=== PATIENT | female | born 1955 | race Caucasian/White ===

== ENCOUNTER 2020-11-26 12:56 | Outpatient (REF) | payer OTHER, SELFPAY | END 2020-11-26 12:57 | disposition home or self-care (01) | LOC: HO.BBR 12:56 | PROVIDERS: PCP Internal Medicine; Visit Provider Family Medicine | DX: Z13.89 Encounter for screening for other disorder (principal) ==

== ENCOUNTER 2020-11-26 13:51 | Outpatient (REF) | payer SELFPAY ==
[2020-11-26 14:33] LABS: Cholesterol 178 mg/dL
== END 2020-11-26 13:52 | disposition home or self-care (01) ==
LOC: HO.LNC 13:51
PROVIDERS: Visit Provider Pathology Anatomic Pathology & Clinical Pathology
DX: Z13.89 Encounter for screening for other disorder (principal)
CPT/HCPCS: 36415; 82465

== ENCOUNTER 2021-03-26 12:59 | Outpatient (REF) | payer MEDICARE, SELFPAY | END 2021-03-26 13:00 | disposition home or self-care (01) | LOC: HO.BBR 12:59 | PROVIDERS: Visit Provider Family Medicine | DX: Z13.89 Encounter for screening for other disorder (principal) ==

== ENCOUNTER 2021-08-21 14:03 | Outpatient (REF) | payer MEDICARE, SELFPAY ==
[2021-08-21 15:23] LABS: Ferritin 58 ng/mL (10-250)
== END 2021-08-21 14:04 | disposition home or self-care (01) ==
LOC: HO.BBR 14:03
PROVIDERS: PCP Internal Medicine; Visit Provider Family Medicine
DX: E83.110 Hereditary hemochromatosis (principal)
CPT/HCPCS: 36415; 82728

== ENCOUNTER 2022-03-17 13:29 | Outpatient (REF) | payer MEDICARE, SELFPAY | END 2022-03-17 13:30 | disposition home or self-care (01) | LOC: HO.BBR 13:29 | PROVIDERS: Visit Provider Family Medicine | DX: Z13.89 Encounter for screening for other disorder (principal) ==

== ENCOUNTER 2022-08-26 13:02 | Outpatient (REF) | payer MEDICARE, SELFPAY ==
[2022-08-26 15:55] LABS: Ferritin 123 ng/mL (10-250)
== END 2022-08-26 13:03 | disposition home or self-care (01) ==
LOC: HO.BBR 13:02
PROVIDERS: Visit Provider Family Medicine
DX: E83.110 Hereditary hemochromatosis (principal)
CPT/HCPCS: 36415; 82728

== ENCOUNTER 2022-12-24 11:57 | Outpatient (REF) | payer MEDICARE, SELFPAY | END 2022-12-24 11:58 | disposition home or self-care (01) | LOC: HO.BBR 11:57 | PROVIDERS: Visit Provider Family Medicine | DX: Z13.89 Encounter for screening for other disorder (principal) ==

== ENCOUNTER 2023-06-01 12:36 | Outpatient (REF) | payer MEDICARE, SELFPAY | END 2023-06-01 12:37 | disposition home or self-care (01) | LOC: HO.BBR 12:36 | PROVIDERS: Visit Provider Family Medicine | DX: Z13.89 Encounter for screening for other disorder (principal) ==

== ENCOUNTER 2023-10-11 12:01 | Outpatient (REF) | payer MEDICARE, SELFPAY | END 2023-10-11 12:02 | disposition home or self-care (01) | LOC: HO.BBR 12:01 | PROVIDERS: Visit Provider Family Medicine | DX: Z13.89 Encounter for screening for other disorder (principal) ==

== ENCOUNTER 2024-02-16 12:12 | Outpatient (REF) | payer MEDICARE, SELFPAY | END 2024-02-16 12:13 | disposition home or self-care (01) | LOC: HO.BBR 12:12 | PROVIDERS: PCP Internal Medicine; Visit Provider Family Medicine | DX: Z13.89 Encounter for screening for other disorder (principal) ==

== ENCOUNTER 2024-07-07 12:49 | Outpatient (REF) | payer MEDICARE, SELFPAY | END 2024-07-07 12:50 | disposition home or self-care (01) | LOC: HO.BBR 12:49 | PROVIDERS: PCP Internal Medicine; Visit Provider Internal Medicine | DX: Z13.89 Encounter for screening for other disorder (principal) ==

== ENCOUNTER 2024-11-16 12:58 | Outpatient (REF) | payer MEDICARE, SELFPAY ==
--- OUTSIDE RECORDS SUMMARY | 2024-11-16 15:19 | XMS_ITS | Continuity of Care Document ---
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 Plan of Treatment Reminders Order Date Submit Date Provider Last Modified By Organization Details Last Modified Time Details Appointments Establish ed 15 2024 10:30A M SEVERO AVILA MD Not available Not available Not available Lab None recorded. Referral None recorded. Procedures None recorded. Surgeries None recorded. Imaging None recorded. Medication Orders EpiPen 2-Que 0.3 mg/0.3 mL injection , auto-inje ctor 2024 025 [facility][id number], [address] [facility] [place], [address], 11/10/2024 11:24:29 Patient TargetsNo targets recorded. Patient InstructionsNo instructions recorded. Reason for Referral None Reported. Problems Name Problem SNOMED Code Status Onset Date Resolution Date Notes Provider Name and Address Organization Details Recorded Time Gastroeso phageal reflux disease 242895145 Active 2014 GERD; Note: Date Diagnosed : 10/31/2014 10:39 AM (530.81) Not Available [facility] 4 02:56:52 Acute pharyngit is 726448292 Active 2015 Acute pharyngit is, unspecifi ed; Note: Date Diagnosed : 03/05/2016 5:04 PM (J02.9) Not Available [facility] 4 02:56:52 Allergic rhinitis 07919531 Active 2014 Allergic Rhinitis; Note: Date Diagnosed : 12/03/2014 11:53 AM (477.9) ; Start Date : 5 Allergi c rhinitis: Due to other allergen; Note: Date Diagnosed : 11/22/2014 12:01 PM (477.8) ; Start Date : 5 Allergi c Rhinitis; Note: Date Diagnosed : 10/31/2014 10:39 AM (477.9) ; Start Date : 5 Perenni al allergic rhinitis; Note: Date Diagnosed : 5 4:35 PM (J30.89) Not Available [facility] 4 02:56:53 Impacted cerumen in right ear [id number] 75705 Active 2018 Impacted cerumen, right ear; Note: Date Diagnosed : 03/07/2019 10:37 AM (H61.21) Not Available [facility] 4 02:56:53 Dysphonia 04757430 Active 2016 Hoarsenes s; Note: Date Diagnosed : 7 4:03 PM (R49.0) Not Available [facility] 4 02:56:52 Asthma 968091825 Active 2016 Other asthma; Note: Date Diagnosed : 04/22/2017 10:57 AM (J45.998) Not Available [facility] 4 02:56:51 Impacted cerumen in left ear 98674851310 53220 Active 2015 Impacted cerumen, left ear; Note: Date Diagnosed : 6 2:06 PM (H61.22) Not Available [facility] 4 02:56:54 Acute upper respirato ry infection 03345264 Active 2014 Upper Respirato ry Infection ; Note: Date Diagnosed : 10/31/2014 10:39 AM (465.9) Not Available [facility] 4 02:56:50 Abnormal auditory perceptio n 85974184 Active 2018 Other abnormal auditory perceptio ns, unspecifi ed ear; Note: Date Diagnosed : 03/07/2019 10:28 AM (H93.299) Not Available [facility] 4 02:56:52 Psoriasis 0490987 Active 2022 Psoriasis and similar disorders : Other psoriasis ; Location: bilateral [facility] Treatment : new problem (to examiner) : no additiona l workup planned N ote: Date Diagnosed : 4 3:44 PM (696.1) ; Start Date : 4 Psorias is, unspecifi ed; Note: Date Diagnosed : 07/27/2023 1:59 PM (L40.9) Not Available [facility] 4 02:56:53 Cough 54456527 Active 2022 Cough; Note: Date Diagnosed : 02/16/2023 3:31 PM (R05) Not Available [facility] 4 02:56:51 Infective otitis externa 89097225 Active 2013 Otitis externa; infective ; Location: left [facility] Treatment : new problem (to examiner) : no additiona l workup planned N ote: Date Diagnosed : 4 3:44 PM (380.10) Not Available [facility] 4 02:56:52 Impacted cerumen of bilateral ears 02823054461 72527 Active 2022 Impacted cerumen, bilateral ; Note: Date Diagnosed : 02/16/2023 3:31 PM (H61.23) Not Available [facility] 4 02:56:54 Recurrent acute sinusitis 099168144 Active 2015 Other acute recurrent sinusitis ; Note: Date Diagnosed : 03/05/2016 5:00 PM (J01.81) Not Available [facility] 4 02:56:53 Bilateral tinnitus 33989535403 02 Active 2019 Tinnitus, bilateral ; Note: Date Diagnosed : 11/29/2019 3:06 PM (H93.13) Not Available [facility] 4 02:56:51 Candidal otitis externa 72377585 Active 2023 SEVERO AVILA MD [address] [place] [address], [facility] edna, [place], [address] , [facility] - [facility] 4 14:20:35 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 Medical Equipment None Reported. Allergies Allergen ID Allergen Name Allergen Category Reaction Reaction Severity Criticality Documentation Date Start Date Code Code System Note Provider Name and Address Organization Details Recorded Time [id number] Substance with sulfonami de structure and antibacte rial mechanism of action (substanc e) medicatio n other Not available Not available 03/07/2024 65675 [id number] SNOMED React ion: unkno wn, unspe cifie d;; Not Available [facility] 4 00:37:31 Medications Name Sig Start Date Stop Date Status Note LastModified by Organization Details LastModified Time Prescript ion - Prior Authoriza tion Request active Script Copy/Erin or Auth^Scr ipt Copy/Erin or Auth_ [id number] Not Available Not Available Not Available [facility] Thyroid 60 mg tablet TAKE 1 TABLET BY MOUTH EVERY DAY active Not Available Not Available No t Available Augmentin 875 mg-125 mg tablet 07/13 completed Medicati on ID: [id number] D uration Value: 10 Brand Name: Augmenti n Send Method: E-Prescr ibed Sub s Allowed: subs OK Speci al Instruct ion: 1 PO BID for 10 days Med icationG enericNa me: Augmenti n Not Available Not Available Not Available prednison e 10 mg tablet PLEASE SEE ATTACHED FOR DETAILED DIRECTIO NS 07/13 completed Not Available Not Available Not Available azithromy aaliyah 250 mg tablet TAKE 2 TABLETS BY MOUTH TODAY, THEN TAKE 1 TABLET DAILY FOR 4 DAYS DIRECTED 07/13 completed Not Available Not Available Not Available Medrol (Que) 4 mg tablets in a dose pack 07/13 completed Medicati on ID: [id number] P rescribe d By Name: Sarthak Mercaod MD Brand Name: Medrol (Que) Se nd Method: E-Prescr ibed Sub s Allowed: subs OK Speci al Instruct ion: take as [facility] ed [facility] Medrol (Que) Not Available Not Available Not Available triamcino lone acetonide 0.1 % topical cream APPLY TWICE A DAY TO ACTIVE PSORIASI S FOR UP TO TWO WEEKS AT A TIME active Not Available Not Available No t Available amoxicill in 500 mg tablet TAKE 1 TABLET BY MOUTH 3 TIMES A DAY FOR 10 DAYS 11/10 completed Not Available Not Available Not Available nystatin- triamcino lone 100,000 unit/gram -0.1 % topical ointment 03/07 completed Medicati on ID: [id number] D uration Value: 7 Reason: () Brand Name: nystatin -triamci nolone S end Method: E-Prescr ibed Sub s Allowed: subs OK Speci al Instruct ion: APPLY TO AFFECTED AREA BY EXTERNAL ROUTE 2 TIMES A DAY FOR 7 DAYS Med icationG enericNa me: nystatin -triamci nolone Not Available Not Available Not Available cephalexi n 500 mg capsule 11/22 completed Medicati on ID: [id number] Dur ation Value: 7 Reason: () Brand Name: cephalex in Send Method: E-Prescr ibed Sub s Allowed: subs OK Speci al Instruct ion: take 1 capsule by mouth four times a day for 7 days Med icationG enericNa me: cephalex in Not Available Not Available Not Available triamcino lone acetonide 0.1 % topical ointment 02/16 completed Medicati on ID: [id number] D uration Value: 14 Brand Name: triamcin olone acetonid e Send Method: E-Prescr ibed Sub s Allowed: subs OK Speci al Instruct ion: APPLY TOPICALL Y TO THE AFFECTED AREA 2 TIMES A DAY FOR 14 DAYS Med icationG enericNa me: triamcin olone acetonid e Not Available Not Available Not Available clotrimaz ole-betam ethasone 1 %-0.05 % topical cream PLEASE SEE ATTACHED FOR DETAILED DIRECTIO NS active Not Available Not Available No t Available Advair Diskus 250 mcg-50 mcg/dose powder for inhalatio n Inhale 1 puff twice a day 07/13 completed Medicati on ID: [id number] D uration Value: 90 Prescri bed By Name: Sarthak Mercado MD Brand Name: Adv Diskus S end Method: E-Prescr ibed Sub s Allowed: subs OK Medic ationGen ericName : Advair Diskus Not Available Not Available Not Available clotrimaz ole 1 % topical solution APPLY 4 DROPS TO THE AFFECTED EAR twice a day for two weeks 11/10 completed Not Available Not Available Not Available omeprazol e 20 mg capsule,d elayed release Take 1 capsule by mouth every morning one hour before meals 07/13 completed Medicati on ID: [id number] D uration Value: 30 Prescri bed By Name: Rk michel MD Brand Name: omeprazo le Send Method: E-Prescr ibed Sub s Allowed: subs OK Medic ationGen ericName : omeprazo le Not Available Not Available Not Available mont[address] 10 mg tablet 02/16 completed Medicati on ID: [id number] Dur ation Value: 30 Brand Name: monteluk ast Send Method: E-Prescr ibed Sub s Allowed: subs OK Speci al Instruct ion: TAKE 1 TABLET EVERY EVENING Medicati onGeneri cName: monteluk ast Not Available Not Available Not Available [facility] Thyroid 30 mg tablet 06/07 completed Medicati on ID: [id number] D uration Value: 90 Reason: () Brand Name: [place] Thyroid Send Method: E-Prescr ibed Sub s Allowed: subs OK Speci al Instruct ion: TAKE 1 TABLET BY MOUTH ONCE DAILY Me dication GenericN cathy: [place] Thyroid Not Available Not Available Not Available estradiol 0.01% (0.1 mg/gram) vaginal cream APPLY 1 APPLICAT ORFUL BY VAGINAL ROUTE 2 TIMES A WEEK FOR 90 DAYS 07/13 completed Not Available Not Available Not Available albuterol sulfate HFA 90 mcg/actua tion aerosol inhaler 2 PUFFS INHALATI ON 4 TIMES A DAY, NEEDED active Not Available Not Available No t Available TobraDex 0.3 %-0.1 % eye drops,perez pension 10/12 completed Medicati on ID: [id number] Pre scribed By Name: CELIA Gomez nd Name: TobraDex Send Method: E-Prescr ibed Sub s Allowed: subs OK Speci al Instruct ion: Instill 3 drops in the affect ear BID for 10 days Med icationG enericNa me: TobraDex Not Available Not Available Not Available rosuvasta tin 5 mg tablet TAKE 1 TABLET BY MOUTH EVERY DAY active Not Available Not Available No t Available nitrofura ntoin monohydra te/macroc rystals 100 mg capsule TAKE 1 CAPSULE BY MOUTH TWICE A DAY FOR 5 DAYS 11/10 completed Not Available Not Available Not Available Flovent HFA 110 mcg/actua tion aerosol inhaler 2 puff 02/16 completed Medicati on ID: [id number] P rescribe d By Name: Sarthak Mercado MD Brand Name: Flovent HFA Send Method: E-Prescr ibed Sub s Allowed: No subs Med icationG enericNa me: Flovent HFA Not Available Not Available Not Available Cortispor in 10/13 completed Medicati on ID: [id number] R radha: () Brand Name: cortispo rin Send Method: E-Prescr ibed Sub s Allowed: subs OK Medic ationGen ericName : cortispo rin Not Available Not Available Not Available Symbicort 160 mcg-4.5 mcg/actua tion HFA aerosol inhaler PLEASE SEE ATTACHED FOR DETAILED DIRECTIO NS active Not Available Not Available No t Available omeprazol e 20 mg tablet,de layed release 02/16 completed Medicati on ID: [id number] Pr escribed By Name: Sarthak Mercado MD Brand Name: omeprazo le Send Method: E-Prescr ibed Sub s Allowed: subs OK Speci al Instruct ion: Take 1 tablet by mouth twice day before a meal Med icationG enericNa me: omeprazo le Not Available Not Available Not Available EpiPen 2-Que 0.3 mg/0.3 mL injection , auto-inje ctor 1 pen injector intramus cularly 2024 active Not Available Not Available Not Avai lable Taclonex 0.005 %-0.064 % topical suspensio n 02/16 completed Medicati on ID: [id number] D uration Value: 30 Brand Name: Taclonex Send Method: E-Prescr ibed Sub s Allowed: subs OK Speci al Instruct ion: APPLY DAILY TO PSORIASI S TO SCALP AND BODY Med icationG enericNa me: Taclonex Not Available Not Available Not Available Vitals Date Recorded Body height Body mass index (BMI) Body weight Provider Name and Address Organization Details Last Updated DateTime 11/10/2024 157.48 cm 31.6 kg/m2 48443.48 g Fabiola Lam [place] - [facility] 11/10/2024 11:05:42 Social History None recorded. Functional Status None recorded. Mental Status None recorded. Family History Nothing Reported. Medical History No medical history recorded. Gynecological HistoryNo gynecological history recorded. Obstetrics History GPAL:G 0 P 0 0 0 0 Past Encounters Encounter ID Performer Location Encounter Start Date Encounter Closed Date Diagnosis/Indication Diagnosis SNOMED-CT Code Diagnosis ICD10 Code Diagnosis Note [id number] SEVERO AVILA MD [facility] [address] [address] 11/10/2024 10:51:49 11/10/2024 11:28:45 Allergic rhinitis 23088792 J30.89 Impacted c erumen of bilateral ears 0442539601 292103 H61.23 Completely squamous debris removed on the right, partially impacted cerumen removed on the left. I did recommend using the clotrimazo le prescribed at her last visit. I counseled her on dosing. She should continue to use the Lotrisone cream as needed for both EAC meatuses.F ollow-up 3 months. Health Concerns Section Related Observation LastModified by Organization Detai ls LastModified Time None Recorded Concern Status LastModified by Organization Details LastModified Time None Recorded Payers Encounter Date Sequence Insurance Name Policy Number Policy Renae Covered Member ID Renae Member ID Guarantor Name 11/10/2024 1 [place]: [employer] Sapna S Polep [id number] Sapna Polep 11/10/2024 2 [employer] (MEDICARE SUPPLEMENT) Sapna Tuttle Ana [id number] Sapna Perez Notes Date Note Type Note Provider Name and Address Organization Details Recorded Time 11/10/2024 text/html Previous audiogr am in 2019 excellent. Some blockage on the right. Did not use clotrimazole drops after her last visit. Does have some allergies with epipen. ESVERO AVILA MD [address] [place] [address], [place], [address], [place] - [facility] 11/10/2024 12:24:25 OBGyn Episode No OBEpisode recorded.
--- OUTSIDE RECORDS SUMMARY | 2024-11-16 15:19 | XMS_ITS | Data Portability ---
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 Plan of Treatment Reminders Order Date Submit Date Provider Last Modified By Organization Details Last Modified Time Details Appointments Establish ed 15 2024 10:30A M SEVERO AVILA MD Not available Not available Not available Lab None recorded. Referral None recorded. Procedures None recorded. Surgeries None recorded. Imaging None recorded. Medication Orders clotrimaz ole-betam ethasone 1 %-0.05 % topical cream 2023 024 [facility] #[id number], [address], [place], [address], 07/13/2024 14:21:48 clotrimaz ole 1 % topical solution 2023 025 [facility] #[id number], [address], [place], [address], 11/10/2024 11:06:03 EpiPen 2-Que 0.3 mg/0.3 mL injection , auto-inje ctor 2024 025 [facility] #[id number], [address], [place], [address], 11/10/2024 11:24:29 Patient TargetsNo targets recorded. Patient InstructionsNo instructions recorded. Reason for Referral None Reported. Results Created Date Observation Date Name Description Value Unit Range Abnormal Flag Note LastModifiedBy Organization Detail LastModifiedTime 06/14/20 24 11/29/2019 imagi ng/di agnos tic resul t No observ ation record ed. [email or web address] Not Available 05:33:21 06/14/20 24 03/07/2019 audio gram No observ ation record ed. [email or web address] Not Available 05:33:35 Result Notes None recorded. Problems Name Problem SNOMED Code Status Onset Date Resolution Date Notes Provider Name and Address Organization Details Recorded Time Gastroeso phageal reflux disease 731140351 Active 2014 GERD; Note: Date Diagnosed : 10/31/2014 10:39 AM (530.81) Not Available [facility] 4 02:56:52 Acute pharyngit is 844668995 Active 2015 Acute pharyngit is, unspecifi ed; Note: Date Diagnosed : 03/05/2016 5:04 PM (J02.9) Not Available [facility] 4 02:56:52 Allergic rhinitis 66062844 Active 2014 Allergic Rhinitis; Note: Date Diagnosed [...] : 5 4:35 PM (J30.89) Not Available [facility] 4 02:56:53 Impacted cerumen in right ear 87322974625 13300 Active 2018 Impacted cerumen, right ear; Note: Date Diagnosed : 03/07/2019 10:37 AM (H61.21) Not Available [facility] 4 02:56:53 Dysphonia 56388363 Active 2016 Hoarsenes s; Note: Date Diagnosed : 7 4:03 PM (R49.0) Not Available [facility] 4 02:56:52 Asthma 250586398 Active 2016 Other asthma; Note: Date Diagnosed : 04/22/2017 10:57 AM (J45.998) Not Available [facility] 4 02:56:51 Impacted cerumen in left ear 63428790908 83600 Active 2015 Impacted cerumen, left ear; Note: Date Diagnosed : 6 2:06 PM (H61.22) Not Available [facility] 4 02:56:54 Acute upper respirato ry infection 01477753 Active 2014 Upper Respirato ry Infection ; Note: Date Diagnosed : 10/31/2014 10:39 AM (465.9) Not Available [facility] 4 02:56:50 Abnormal auditory perceptio n 48954927 Active 2018 Other abnormal auditory perceptio ns, unspecifi ed ear; Note: Date Diagnosed : 03/07/2019 10:28 AM (H93.299) Not Available [facility] 4 02:56:52 Psoriasis 5715959 Active 2022 Psoriasis and similar disorders : Other psoriasis ; Location: bilateral [facility] Treatment : new problem (to examiner) : no additiona l workup planned N ote: Date Diagnosed : 4 3:44 PM (696.1) ; Start Date : 4 Psorias is, unspecifi ed; Note: Date Diagnosed : 07/27/2023 1:59 PM (L40.9) Not Available [facility] 4 02:56:53 Cough 38864770 Active 2022 Cough; Note: Date Diagnosed : 02/16/2023 3:31 PM (R05) Not Available [facility] 4 02:56:51 Infective otitis externa 12711876 Active 2013 Otitis externa; infective ; Location: left [facility] Treatment : new problem (to examiner) : no additiona l workup planned N ote: Date Diagnosed : 4 3:44 PM (380.10) Not Available [facility] 4 02:56:52 Impacted cerumen of bilateral ears 67498675974 34101 Active 2022 Impacted cerumen, bilateral ; Note: Date Diagnosed : 02/16/2023 3:31 PM (H61.23) Not Available [facility] 4 02:56:54 Recurrent acute sinusitis 318357478 Active 2015 Other acute recurrent sinusitis ; Note: Date Diagnosed : 03/05/2016 5:00 PM (J01.81) Not Available [facility] 4 02:56:53 Bilateral tinnitus 50431319206 02 Active 2019 Tinnitus, bilateral ; Note: Date Diagnosed : 11/29/2019 3:06 PM (H93.13) Not Available [facility] 4 02:56:51 Candidal otitis externa 27568203 Active 2023 SEVERO AVILA MD [address] [place] [address],[place] [address], [place], [address] , 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 - [facility] 4 14:20:35 Problem Notes None recorded. Procedures Surgical History None recorded. Imaging Results Imaging Date Name Status LastModified by [facility] Details LastModified Time 11/29/2019 imaging/diagno stic result completed Information not available 06/14/2024 05:33:21 03/07/2019 audiogram completed Information not available 06/14/2024 05:33:35 Procedure Notes None recorded. Medical Equipment None Reported. Allergies Allergen ID Allergen Name Allergen Category Reaction Reaction Severity Criticality Documentation Date Start Date Code Code System Note Provider Name and Address Organization Details Recorded Time 667896 Substance with sulfonami de structure and antibacte rial mechanism of action (substanc e) medicatio n other Not available Not available 03/07/2024 84448 8003 SNOMED React ion: unkno wn, unspe cifie d;; Not Available [facility] 4 00:37:31 Medications Name Sig Start Date Stop Date Status Note LastModified by Organization Details LastModified Time Prescript ion - Prior Authoriza tion Request active Script Copy/Erin or Auth^Scr ipt Copy/Erin or Auth_202 74427 Not Available Not Available Not Available Fountain Thyroid 60 mg tablet TAKE 1 TABLET BY MOUTH EVERY DAY active Not Available Not Available No t Available Augmentin 875 mg-125 mg tablet 07/13 completed Medicati on ID: [id number] D uration Value: 10 Brand Name: Kalie beauchamp Send Method: E-Prescr ibed Sub s Allowed: [...] dose pack 07/13 completed Medicati on ID: [id number] P rescribe d By Name: Sarthak Mercado MD Brand Name: Medrol (Que) Se nd Method: E-Prescr ibed Sub s Allowed: subs OK Speci al Instruct ion: take as instruct ed Medic ationGen ericName : Medrol (Que) Not Available Not [...] topical ointment 03/07 completed Medicati on ID: [id number] D uration Value: 7 Reason: () Brand [...] topical ointment 02/16 completed Medicati on ID: [id number] D uration Value: 14 Brand Name: triamcin [...] a day 07/13 completed Medicati on ID: [id number] D uration Value: 90 Prescri bed By Name: Sarthak Mercado MD Brand Name: Advair Diskus S end Method: E-Prescr ibed Sub [...] before meals 07/13 completed Medicati on ID: [id number] D uration Value: 30 Prescri bed By [...] ast Not Available Not Available Not Available Fountain Thyroid 30 mg tablet 06/07 completed Medicati on ID: [id number] D uration Value: 90 Reason: () Brand Name: Fountain Thyroid Send Method: E-Prescr ibed Sub s Allowed: subs OK Speci al Instruct ion: TAKE 1 TABLET BY MOUTH ONCE DAILY Me dication GenericN cathy: Fountain Thyroid Not Available Not Available Not Available [...] Available TobraDex 0.3 %-0.1 % eye drops,[facility] 10/12 completed Medicati on ID: [id number] Pre [...] 2 puff 02/16 completed Medicati on ID: [id number] P rescribe d By Name: Sarthak Mercado MD Brand Name: Flovent HFA Send Method: E-Prescr ibed Sub s Allowed: No subs Med icationG enericNa me: Flovent HFA Not Available Not Available Not Available Cortispor in 10/13 completed Medicati on ID: [id number] R radha: () Brand Name: cortispo rin Send Method: E-Prescr ibed Sub s Allowed: subs OK Medic ationGen ericName : cortispo rin Not Available Not Available Not Available Symbicort 160 mcg-4.5 mcg/actua tion HFA aerosol inhaler PLEASE SEE ATTACHED FOR DETAILED DIRECTIO NS active Not Available Not Available No t Available omeprazol e 20 mg tablet,de layed release 02/16 completed Medicati on ID: [id number] Pr escribed By Name: Sarthak Mercado MD [...] suspensio n 02/16 completed Medicati on ID: [id number] D uration Value: 30 Brand Name: Taclonex Send Method: E-Prescr ibed Sub s Allowed: subs OK Speci al Instruct ion: APPLY DAILY TO PSORIASI S TO SCALP AND BODY Med icationG enericNa me: Taclonex Not Available Not Available Not Available Vitals Date Recorded Body height Body mass index (BMI) Body weight Provider Name and Address Organization Details Last Updated DateTime 07/13/2024 157.48 cm 31.6 kg/m2 48792.48 g Fabiola Potvin [place] - [facility] 07/13/2024 13:55:50 Date Recorded Body height Body mass index (BMI) Body weight Provider Name and Address Organization Details Last Updated DateTime 11/10/2024 157.48 cm 31.6 kg/m2 00654.48 g Fabiola Lam [place] - [facility] 11/10/2024 11:05:42 Social History None recorded. Functional Status None recorded. Mental Status None recorded. Family History Nothing Reported. Medical History No medical history recorded. Gynecological HistoryNo gynecological history recorded. Obstetrics History GPAL:G 0 P 0 0 0 0 Past Encounters Encounter ID Performer Location Encounter Start Date Encounter Closed Date Diagnosis/Indication Diagnosis SNOMED-CT Code Diagnosis ICD10 Code Diagnosis Note [id number] SEVERO AVILA MD [facility] [address] [address] 07/13/2024 13:46:12 07/17/2024 12:11:39 Candidal otitis externa 17067584 B37.84 69 yo F here for ear cleaning which was tolerated well. There was some fungal debris on the right for which I recommende d a course of clotrimazo le drops. She can use the Lotrisone as needed for scaling or itching.Sh e has had some sinus symptoms for a couple days. No mucus on exam I recommende d symptomati c treatment, including Afrin. Follow-up if worsening symptoms or no improvemen t after couple weeks [id number] SEVERO AVILA MD [facility] [address] [address] 11/10/2024 10:51:49 11/10/2024 11:28:45 Allergic rhinitis 75579466 J30.89 Impacted c erumen of bilateral ears 8437476378 948433 H61.23 Completely squamous debris removed on the right, partially impacted cerumen removed on the left. I did recommend using the clotrimazo le prescribed at her last visit. I counseled her on dosing. She should continue to use the Lotrisone cream as needed for both EAC meatuses.F ollow-up 3 months. Health Concerns Section Related Observation LastModified by Organization Marina uribe LastModified Time None Recorded Concern Status LastModified by Organization Details LastModified Time None Recorded Advance Directives Directive None Recorded Payers Encounter Date Sequence Insurance Name Policy Number Policy Renae Covered Member ID Renae Member ID Guarantor Name 07/13/2024 1 MEDICARE B-[place]: [facility] Sapna S Polep [id number] Sapna Pole 07/13/2024 2 [employer] OPTIONS (MEDICARE SUPPLEMENT) Sapna Polep [id number] Sapna Polep 11/10/2024 1 MED[place] [facility] Sapna S Polep [id number] Sapna Pole 11/10/2024 2 [employer] (MEDICARE SUPPLEMENT) Sapna S Polep [id number] Sapna Pole Notes Date Note Type Note Provider Name and Address Organization Details Recorded Time 07/13/2024 text/html Here for cerumen removal. Sinus pressure for a couple days, took sudafed for a couple days. taking alavert. No nasal steroids. SEVERO AVILA MD [address], [address], [place] - [facility] 07/17/2024 10:12:50 11/10/2024 text/html Previous audiogr am in 2019 excellent. Some blockage on the right. Did not use clotrimazole drops after her last visit. Does have some allergies with epipen. SEVERO AVILA MD [address] [place] [address],[address], [address], [facility] - [facility] 11/10/2024 12:24:25 OBGyn Episode No OBEpisode recorded.
== END 2024-11-16 12:59 | disposition home or self-care (01) ==
LOC: HO.BBR 12:58
PROVIDERS: PCP Internal Medicine; Visit Provider Family Medicine
DX: Z13.89 Encounter for screening for other disorder (principal)

== ENCOUNTER 2024-12-04 13:47 | Outpatient (REF) | payer MEDICARE, SELFPAY ==
--- OUTSIDE RECORDS SUMMARY | 2024-12-04 14:56 | XMS_ITS | Patient Health Record ---
Author Organization [facility] Address [address] [facility] [address] [place] [address] Care Team Providers Care Building Rigger Name Role Phone Louis Latasha Primary Care Provider Unavailab le Allergies Allergen (clinical drug ingredient) Drug/Non Drug Allergy documented on EMR Reaction Allergy Type Onset Date Status Figs Figs (uncoded) Unknown Allergy Activ e strawberry allergenic extract strawberries (uncoded) Unknown Allergy Activ e doxycycline Doxycycline Unknown Drug Allergy Act damari etodolac Lodine Unknown Drug Allergy Active codeine Codeine Unknown Drug Allergy Active Substance with sulfonamide structure and antibacterial mechanism of action (substance) Sulfa Antibiotics Unknown Drug Allergy Active Reason For Referral No Information Medications Medication SIG (Take, Route, Frequency, Duration) Notes Start Date End Date Status Ibuprofen 600 MG 1 tablet with food or milk as needed Orally Three times a day Not-Taking ProAir HFA 108 (90 Base) MCG/ACT 1 puff as needed Inhalation 4 times daily prn Active Claritin 10 MG 1 tablet Orally Once a day prn Active Vitamin D3 5000 tab daily Active Diclofenac Sodium 3 % 1 application Externally Twice a day for 30 day(s) 04/10/2021 Not-Taking Hydrocortisone 0.2% cream prn Active Probiotic 2 caps daily Active Calcium 250 mg daily Not-Epifanio ing Benadryl 25 mg prn Active Magnesium 400 MG as directed Orally daily Active Flovent HFA 110 MCG/ACT 2 puff Inhalation Twice a day Not-Taking Advair Diskus 250-50 MCG/DOSE 1 puff Inhalation daily Active Lysine 1000 MG as directed Orally daily prn Active Crestor 5 MG 1 tablet Orally Once a day Active Melatonin 2 mg tab daily Active Aspirin 81 MG 1 tablet Orally Once a day Active Ubiquinol 1 cap daily Active 5-HTP 100 MG 1-2 capsule with a meal Orally Once a day Active Singulair 10 MG 1 tablet Orally Once a day Active [employer] Thyroid 60 MG 1 tablet on an empty stomach Orally Once a day Active Homocysteine Formula 2 cap daily Active Problems Problem Type SNOMED Code ICD Code Onset Dates Problem Status W/U Status Risk Notes Problem 177163652 Hammer toe of right foot (M20.41) Active confirmed Problem 463211393 Hammer toe of second toe of left foot (M20.42) Active confirmed Plan Of Treatment Pending Test Test Name Order Date X ray : Foot, left 3v 04/10/2021 X ray : Foot, right 3v 04/10/2021 Insurance Providers Payer Name Payer Address Payer Phone Subscriber Number Group Number Insured Name Patient Relationship to Insured Coverage Start Date Coverage End Date Medicare of [place] [address] [place] [phone] [id number] PolepSapna Self - patient is the insured A[employer] Secondary to Medicare [address] [place] [address] [phone] [id number] Polep, Sapna Self - patient is the insured Medical (General) History Medical History History ICD Code asthma seasonal allergies gene positive hemachromatosis Surgical History Surgery Date(Month/Year) ovarian cyst removal ectopic 1980 1986 lipoma excision hysterectomy Hospitalization History Reason Date(Month/Year) observation for palpitations hysterectomy ectopic 1980 (boy) 1986 vaginal delivery (boy) 1982
--- OUTSIDE RECORDS SUMMARY | 2024-12-04 14:56 | XMS_ITS | Data Portability ---
Author Organization [place] [facility], Allergy Address [address] [place] [address] Care Team Providers Care Mining Helper Name Role Phone YULIA LAUREN Primary Care Provider Assessment No assessment recorded. Plan of Treatment Reminders Order Date Submit Date Provider Last Modified By Organization Details Last Modified Time Details Appointments None recorded. Lab None recorded. Referral None recorded. Procedures None recorded. Surgeries None recorded. Imaging None recorded. Medication Orders clotrimazol e-betametha sone 1 %-0.05 % topical cream 2023 024 [facility] #[id number], [address], [place], [address], 4 14:21:48 clotrimazol e 1 % topical solution 2023 025 [facility] #[id number], [address], [place], [address], 5 11:06:03 EpiPen 2-Que 0.3 mg/0.3 mL injection, auto-inject or 2024 025 [facility] #[id number], [address], [place], [address], 5 11:24:29 Patient TargetsNo targets recorded. Patient InstructionsNo [...] Details Recorded Time Gastroeso phageal reflux disease 263230093 Active 2014 GERD; Note: Date Diagnosed : 10/31/2014 10:39 AM (530.81) Not Available [facility] 4 02:56:52 Acute pharyngit is 052231444 Active 2015 Acute pharyngit is, unspecifi ed; Note: Date Diagnosed : 03/05/2016 5:04 PM (J02.9) Not Available [facility] 4 02:56:52 Allergic rhinitis 98649983 Active 2014 Allergic Rhinitis; Note: Date Diagnosed [...] : 5 4:35 PM (J30.89) Not Available [facility] 4 02:56:53 Impacted cerumen in right ear 03457245307 72325 Active 2018 Impacted cerumen, right ear; Note: Date Diagnosed : 03/07/2019 10:37 AM (H61.21) Not Available [facility] 4 02:56:53 Dysphonia 01645312 Active 2016 Hoarsenes s; Note: Date Diagnosed : 7 4:03 PM (R49.0) Not Available [facility] 4 02:56:52 Asthma 615988511 Active 2016 Other asthma; Note: Date Diagnosed : 04/22/2017 10:57 AM (J45.998) Not Available [facility] 4 02:56:51 Impacted cerumen in left ear 87278302992 27586 Active 2015 Impacted cerumen, left ear; Note: Date Diagnosed : 6 2:06 PM (H61.22) Not Available [facility] 4 02:56:54 Acute upper respirato ry infection 72248678 Active 2014 Upper Respirato ry Infection ; Note: Date Diagnosed : 10/31/2014 10:39 AM (465.9) Not Available [facility] 4 02:56:50 Abnormal auditory perceptio n 73617819 Active 2018 Other abnormal auditory perceptio ns, unspecifi ed ear; Note: Date Diagnosed : 03/07/2019 10:28 AM (H93.299) Not Available [facility] 4 02:56:52 Psoriasis 9283149 Active 2022 Psoriasis and similar disorders : Other psoriasis ; Location: bilateral [facility] Treatment : new problem (to examiner) : no additiona l workup planned N ote: Date Diagnosed : 4 3:44 PM (696.1) ; Start Date : 4 Psorias is, unspecifi ed; Note: Date Diagnosed : 07/27/2023 1:59 PM (L40.9) Not Available [facility] 4 02:56:53 Cough 15001005 Active 2022 Cough; Note: Date Diagnosed : 02/16/2023 3:31 PM (R05) Not Available [facility] 4 02:56:51 Infective otitis externa 15056918 Active 2013 Otitis externa; infective ; Location: left [facility] Treatment : new problem (to examiner) : no additiona l workup planned N ote: Date Diagnosed : 4 3:44 PM (380.10) Not Available [facility] 4 02:56:52 Impacted cerumen of bilateral ears 23516381647 61917 Active 2022 Impacted cerumen, bilateral ; Note: Date Diagnosed : 02/16/2023 3:31 PM (H61.23) Not Available [facility] 4 02:56:54 Recurrent acute sinusitis 764123291 Active 2015 Other acute recurrent sinusitis ; Note: Date Diagnosed : 03/05/2016 5:00 PM (J01.81) Not Available [facility] 4 02:56:53 Bilateral tinnitus 80684737032 02 Active 2019 Tinnitus, bilateral ; Note: Date Diagnosed : 11/29/2019 3:06 PM (H93.13) Not Available [facility] 4 02:56:51 Candidal otitis externa 95745663 Active 2023 SEVERO AVILA MD [address] [place] [address],[place] [address], [place], [address] , 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 - [facility] [place] 4 14:20:35 Chronic mycotic otitis externa 343319736 Active 2023 SEVERO AVILA MD [address] [place] [address],[place] [address], [place], [address] , [facility] - [facility] [place] 4 14:20:35 Problem Notes None recorded. Procedures Surgical History None recorded. Imaging Results Imaging Date Name Status LastModified by Organiz [facility] Details LastModified Time 11/29/2019 imaging/diagno stic result completed [email or web address] Information not available 06/14/2024 05:33:21 03/07/2019 audiogram completed [email or web address] Information not available 06/14/2024 05:33:35 Procedure Notes None recorded. Medical Equipment None Reported. Allergies Allergen ID Allergen Name Allergen Category Reaction Reaction Severity Criticality Documentation Date Start Date Code Code System Note Provider Name and Address Organization Details Recorded Time 136786 Substance with sulfonami de structure and antibacte rial mechanism of action (substanc e) medicatio n other Not available Not available 03/07/2024 55449 8003 SNOMED React ion: unkno wn, unspe cifie d;; Not Available [facility] 4 00:37:31 Medications Name Sig Start Date Stop Date Status Note LastModified by Organization Details LastModified Time Prescript ion - Prior Authoriza tion Request active Script Copy/Erin or Auth^Scr ipt Copy/Erin or Auth_ 21421 Not Available Not Available Not Available [place] Thyroid 60 mg tablet TAKE 1 TABLET BY MOUTH EVERY DAY active Not Available Not Available No t Available Augmentin 875 mg-125 mg tablet 07/13 completed Medicati on ID: [id number] D uration Value: 10 Brand Name: Augmenti [...] dose pack 07/13 completed Medicati on ID: [id number] P rescribe d By Name: Sarthak Mercado [...] topical ointment 03/07 completed Medicati on ID: [id number] D uration Value: 7 Reason: () Brand [...] topical ointment 02/16 completed Medicati on ID: [id number] D uration Value: 14 Brand Name: triamcin olone acetonid e Send Method: E-Prescr ibed Sub s Allowed: subs OK Speci al Instruct ion: APPLY TOPICALL Y TO THE AFFECTED AREA 2 TIMES A DAY FOR 14 DAYS Med [facility] me: triamcin olone acetonid e Not Available Not Available Not Available clotrimaz ole-betam ethasone 1 %-0.05 % topical cream PLEASE SEE ATTACHED FOR DETAILED DIRECTIO NS active Not Available Not Available No t Available Advair Diskus 250 mcg-50 mcg/dose powder for inhalatio n Inhale 1 puff twice a day 07/13 completed Medicati on ID: [id number] D uration Value: 90 Prescri bed By [...] mouth every morning one hour before meals 04/25/ 2023 09/19 /2024 completed Medicati on ID: [id number] D uration Value: 30 Prescri bed By [...] ast Not Available Not Available Not Available [place] Thyroid 30 mg tablet 06/07 completed Medicati on ID: [id number] D uration Value: 90 Reason: () Brand Name: [place] Thyroid Send Method: E-Prescr ibed Sub s Allowed: subs OK Speci al Instruct ion: TAKE 1 TABLET BY MOUTH ONCE DAILY Me dication GenericN cathy: [place] Thyroid Not Available Not Available Not Available epinephri ne 0.3 mg/0.3 mL injection , auto-inje ctor 1 pen injector intramus cularly active Not Available Not Available No t Available estradiol 0.01% (0.1 mg/gram) vaginal cream [...] 2 puff 02/16 completed Medicati on ID: [id number] P rescribe d By Name: Sarthak Mercado MD Brand Name: Flovent HFA Send Method: E-Prescr ibed Sub s Allowed: No subs Med icationG enericNa me: Flovent HFA Not Available Not Available Not Available Cortispor in 10/13 completed Medicati on ID: [id number] R radha: () Brand Name: cortispo rin Send Method: E-Prescr ibed Sub s Allowed: subs OK Medic ationGen ericName : cortispo rin Not Available Not Available Not Available Symbicort 160 mcg-4.5 mcg/actua tion HFA aerosol inhaler PLEASE SEE ATTACHED FOR DETAILED DIRECTIO NS active Not Available Not Available No t Available omeprazol e 20 mg tablet,de layed release 02/16 completed Medicati on ID: [id number] Pr escribed By Name: Sarthak Mercado MD Brand Name: omeprazo le Send Method: E-Prescr ibed Sub s Allowed: subs OK Speci al Instruct ion: Take 1 tablet by mouth twice day before a meal Med icationG enericNa me: omeprazo le Not Available Not Available Not Available Taclonex 0.005 %-0.064 % topical suspensio n 02/16 completed Medicati on ID: [id number] D uration Value: 30 Brand Name: Taclonex [...] Updated DateTime 07/13/2024 157.48 cm 31.6 kg/m2 59883.48 g Fabiola Lam [place] - [facility] 07/13/2024 13:55:50 Date Recorded Body height Body mass index (BMI) Body weight Provider Name and Address Organization Details Last Updated DateTime 11/10/2024 157.48 cm 31.6 kg/m2 90786.48 g Fabiola Lam [place] - [facility] 11/10/2024 11:05:42 Social History None recorded. Functional Status None recorded. Mental Status None recorded. Family History Nothing Reported. Medical History No medical history recorded. Gynecological HistoryNo gynecological history recorded. Obstetrics History GPAL:G 0 P 0 0 0 0 Past Encounters Encounter ID Performer Location Encounter Start Date Encounter Closed Date Diagnosis/Indication Diagnosis SNOMED-CT Code Diagnosis ICD10 Code Diagnosis Note [id number] SEVERO AVILA MD [facility] [address] [address] 07/13/2024 13:46:12 07/17/2024 12:11:39 Candidal otitis externa 35187062 B37.84 69 yo F here for ear [...] or no improvemen t after couple weeks [id number] SEEVRO AVILA MD [facility] [address] [address] 11/10/2024 10:51:49 11/10/2024 11:28:45 Allergic rhinitis 11715627 J30.89 Impacted c erumen of bilateral ears 1103274653 648201 H61.23 Completely squamous debris removed on the [...] ID Guarantor Name 07/13/2024 1 MEDICARE B-[place]: [facility] Sapna S Polep [id number] Sapna Pole 07/13/2024 2 [employer] OPTIONS (MEDICARE SUPPLEMENT) Sapna Polep [id number] Sapna Pole 11/10/2024 1 MEDICARE B-[place]: [facility] GOVERNMENT SERVICES Sapna S Polep [id number] Sapna Pole 11/10/2024 2 [employer] (MEDICARE SUPPLEMENT) Sapna S Pole [id number] Sapna [facility] Notes Date Note Type Note Provider Name and Address Organization Details Recorded Time 07/13/2024 text/html Here for cerumen removal. Sinus pressure for a couple days, took sudafed for a couple days. taking alavert. No nasal steroids. SEVERO AVILA MD [address] [place] [address], [address], [place] - [facility] 07/17/2024 10:12:50 11/10/2024 text/html Previous audiogr am in 2019 excellent. Some blockage on the right. Did not use clotrimazole drops after her last visit. Does have some allergies with epipen. SEVERO AVILA MD [address] [place] [address],[address], [address], [place] - [facility] 11/10/2024 12:24:25 OBGyn Episode No OBEpisode recorded.
--- OUTSIDE RECORDS SUMMARY | 2024-12-04 14:56 | XMS_ITS | Continuity of Care Document ---
Author Organization [place] - [facility], [facility] Address [address] [place] [address] Care Team Providers Care Treer Name Role Phone YULIA LAUREN Primary Care Provider Assessment No assessment recorded. Plan of Treatment Reminders Order Date Submit Date Provider Last Modified By Organization Details Last Modified Time Details Appointments None recorded . Lab None recorded . Referral None recorded . Procedures None recorded . Surgeries None recorded . Imaging None recorded . Medication Orders EpiPen 2-Que 0.3 mg/0.3 mL injectio n, auto-inj ramila 025 11/10/19 25 [id number], [address] , [place], [address], 5 11:24:29 Patient TargetsNo targets recorded. Patient InstructionsNo instructions recorded. Reason for Referral None Reported. Problems Name Problem SNOMED Code Status Onset Date Resolution Date Notes Provider Name and Address Organization Details Recorded Time Gastroeso phageal reflux disease 155715563 Active 2014 GERD; Note: Date Diagnosed : 10/31/2014 10:39 AM (530.81) Not Available [facility] 4 02:56:52 Acute pharyngit is 764509701 Active 2015 Acute pharyngit is, unspecifi ed; Note: Date Diagnosed : 03/05/2016 5:04 PM (J02.9) Not Available [facility] 4 02:56:52 Allergic rhinitis 52990175 Active 2014 Allergic Rhinitis; Note: Date Diagnosed [...] : 5 4:35 PM (J30.89) Not Available [facility] 4 02:56:53 Impacted cerumen in right ear 36302074675 20650 Active 2018 Impacted cerumen, right ear; Note: Date Diagnosed : 03/07/2019 10:37 AM (H61.21) Not Available [facility] 4 02:56:53 Dysphonia 99503306 Active 2016 Hoarsenes s; Note: Date Diagnosed : 7 4:03 PM (R49.0) Not Available [facility] 4 02:56:52 Asthma 941499995 Active 2016 Other asthma; Note: Date Diagnosed : 04/22/2017 10:57 AM (J45.998) Not Available [facility] 4 02:56:51 Impacted cerumen in left ear 24179881347 02961 Active 2015 Impacted cerumen, left ear; Note: Date Diagnosed : 6 2:06 PM (H61.22) Not Available [facility] 4 02:56:54 Acute upper respirato ry infection 92362108 Active 2014 Upper Respirato ry Infection ; Note: Date Diagnosed : 10/31/2014 10:39 AM (465.9) Not Available [facility] 4 02:56:50 Abnormal auditory perceptio n 38352680 Active 2018 Other abnormal auditory perceptio ns, unspecifi ed ear; Note: Date Diagnosed : 03/07/2019 10:28 AM (H93.299) Not Available [facility] 4 02:56:52 Psoriasis 2028667 Active 2022 Psoriasis and similar disorders : Other psoriasis ; Location: bilateral [facility] Treatment : new problem (to examiner) : no additiona l workup planned N ote: Date Diagnosed : 4 3:44 PM (696.1) ; Start Date : 4 Psorias is, unspecifi ed; Note: Date Diagnosed : 07/27/2023 1:59 PM (L40.9) Not Available [facility] 4 02:56:53 Cough 17169998 Active 2022 Cough; Note: Date Diagnosed : 02/16/2023 3:31 PM (R05) Not Available [facility] 4 02:56:51 Infective otitis externa 86269053 Active 2013 Otitis externa; infective ; Location: left [facility] Treatment : new problem (to examiner) : no additiona l workup planned N ote: Date Diagnosed : 4 3:44 PM (380.10) Not Available [facility] 4 02:56:52 Impacted cerumen of bilateral ears 27315154707 14950 Active 2022 Impacted cerumen, bilateral ; Note: Date Diagnosed : 02/16/2023 3:31 PM (H61.23) Not Available [facility] 4 02:56:54 Recurrent acute sinusitis 798374237 Active 2015 Other acute recurrent sinusitis ; Note: Date Diagnosed : 03/05/2016 5:00 PM (J01.81) Not Available [facility] 4 02:56:53 Bilateral tinnitus 10029164460 02 Active 2019 Tinnitus, bilateral ; Note: Date Diagnosed : 11/29/2019 3:06 PM (H93.13) Not Available [facility] 4 02:56:51 Candidal otitis externa 43006413 Active 2023 SEVERO AVILA MD [address] [place] [address],[place] [address], [place], [address] , [facility] - [facility] 4 14:20:35 Dermal mycosis 67856070 Active 2023 SEVERO AVILA MD [address] [place] [address],[place] [address], [place], [address] , [place] - [facility] [place] 4 14:20:35 Chronic mycotic otitis externa 835671301 Active 2023 SEVERO AVILA MD [address] [place] [address], [place], [address] , [facility] - [facility] [place] 4 14:20:35 Problem Notes None recorded. Medical Equipment None Reported. Allergies Allergen ID Allergen Name Allergen Category Reaction Reaction Severity Criticality Documentation Date Start Date Code Code System Note Provider Name and Address Organization Details Recorded Time 872024 Substance with sulfonami de structure and antibacte rial mechanism of action (substanc e) medicatio n other Not available Not available 03/07/2024 00408 8003 SNOMED React ion: unkno wn, unspe cifie d;; Not Available [facility] 4 00:37:31 Medications Name Sig Start Date Stop Date Status Note LastModified by Organization Details LastModified Time Prescript ion - Prior Authoriza tion Request active Script Copy/Erin or Auth^Scr ipt Copy/Erin or Auth_ 78854 Not Available Not Available Not Available [place] Thyroid 60 mg tablet TAKE 1 TABLET BY MOUTH EVERY DAY active Not Available Not Available No t Available Augmentin 875 mg-125 mg tablet 07/13 completed Medicati on ID: [id number] D uration Value: 10 Brand Name: Augmenti [...] dose pack 07/13 completed Medicati on ID: [id number] P rescribe d By Name: Sarthak Mercado MD Brand Name: Medrol (Que) Se nd Method: E-Prescr ibed Sub s Allowed: subs ALFONZO Elizabeth al Instruct ion: take as instruct ed [facility] Medrol (Que) Not Available [...] topical ointment 03/07 completed Medicati on ID: [id number] D uration Value: 7 Reason: () Brand Name: nystatin -triamci nolone S end Method: E-Prescr ibed Sub s Allowed: subs ALFONZO Neffi al Instruct ion: APPLY TO AFFECTED AREA BY EXTERNAL ROUTE 2 TIMES A DAY FOR 7 DAYS Med icationG enericNa me: nystatin -triamci nolone Not Available Not Available Not Available cephalexi n 500 mg capsule 11/22 completed Medicati on ID: [id number] Dur ation Value: 7 Reason: () Brand Name: cephalex in Send Method: E-Prescr ibed Sub s Allowed: subs ALFONZO Elizabeth al Instruct ion: take 1 capsule by mouth four times a day for 7 days Med icationG enericNa me: cephalex in Not Available Not Available Not Available triamcino lone acetonide 0.1 % topical ointment 02/16 completed Medicati on ID: [id number] D uration Value: 14 Brand Name: triamcin [...] a day 07/13 completed Medicati on ID: [id number] D uration Value: 90 Prescri bed By Name: Sarthak Mercado MD Brand Name: [place] Diskus S end Method: E-Prescr ibed Sub [...] before meals 07/13 completed Medicati on ID: [id number] D uration Value: 30 Prescri bed By [...] ast Not Available Not Available Not Available [place] Thyroid 30 mg tablet 06/07 completed Medicati on ID: [id number] D uration Value: 90 Reason: () Brand Name: [place] Thyroid Send Method: E-Prescr ibed Sub s Allowed: subs OK Speci al Instruct ion: TAKE 1 TABLET BY MOUTH ONCE DAILY Me dication GenericN cathy: [place] Thyroid Not Available Not Available Not Available [...] 2 puff 02/16 completed Medicati on ID: [id number] P rescribe d By Name: Sarthak Mercado MD Brand Name: Flovent HFA Send Method: E-Prescr ibed Sub s Allowed: No subs Med icationG enericNa me: Flovent HFA Not Available Not Available Not Available Cortispor in 10/13 completed Medicati on ID: [id number] R radha: () Brand Name: cortispo rin Send Method: E-Prescr ibed Sub s Allowed: subs OK Medic ationGen ericName : cortispo rin Not Available Not Available Not Available Symbicort 160 mcg-4.5 mcg/actua tion HFA aerosol inhaler PLEASE SEE ATTACHED FOR DETAILED DIRECTIO NS active Not Available Not Available No t Available omeprazol e 20 mg tablet,de layed release 02/16 completed Medicati on ID: [id number] Pr escribed By Name: Sarthak Mercado MD Brand Name: omeprazo le Send Method: E-Prescr ibed Sub s Allowed: subs OK Speci al Instruct ion: Take 1 tablet by mouth twice day before a meal Med icationG enericNa me: omeprazo le Not Available Not Available Not Available Taclonex 0.005 %-0.064 % topical suspensio n 02/16 completed Medicati on ID: [id number] D uration Value: 30 Brand Name: Taclonex [...] Updated DateTime 11/10/2024 157.48 cm 31.6 kg/m2 30496.48 g Fabiola Lam [place] - [facility] 11/10/2024 11:05:42 Social History None recorded. Functional Status None recorded. Mental Status None recorded. Family History Nothing Reported. Medical History No medical history recorded. Gynecological HistoryNo gynecological history recorded. Obstetrics History GPAL:G 0 P 0 0 0 0 Past Encounters Encounter ID Performer Location Encounter Start Date Encounter Closed Date Diagnosis/Indication Diagnosis SNOMED-CT Code Diagnosis ICD10 Code Diagnosis Note [id number] SEVERO AVILA MD [facility] [address] [address] 11/10/2024 10:51:49 11/10/2024 11:28:45 Allergic rhinitis 56789677 J30.89 Impacted c erumen of bilateral ears 4355646138 009848 H61.23 Completely squamous debris removed on the [...] ID Guarantor Name 11/10/2024 1 MEDICARE B-[place]: [employer] Sapna S Polep [id number] Sapna Polep 11/10/2024 2 [employer] (MEDICARE SUPPLEMENT) Sapna S Polep [id number] Sapna Polep Notes Date Note Type Note Provider Name and Address Organization Details Recorded Time 11/10/2024 text/html Previous audiogr am in 2020 excellent. Some blockage on the right. Did not use clotrimazole drops after her last visit. Does have some allergies with epipen. SEVERO AVILA MD [address] [place] [address], [phone], [facility] - [facility] 11/10/2024 12:24:25 OBGyn Episode No OBEpisode recorded.
--- OUTSIDE RECORDS SUMMARY | 2024-12-04 14:56 | XMS_ITS | Clinical Summary ---
Author Organization [facility] Address [address] [place] [address] Care Team Providers Care Anesthesiology Technologist Name Role Phone Latasha Myers MD Primary Care Provider [phone] Allergies Active Allergy Reactions Criticality Noted Date Comments Egg-Derived Products 12/03/2016 Iodinated Contrast Media Swelling 12/07/2016 Knee injected w/ a type of iodine dye and knee swelled (occured 35 years ago) Sulfa Antibiotics 12/03/2016 Medications Medication Sig Dispensed Refills Start Date End Date Status PROAIR HFA 108 (90 Base) MCG/ACT inhaler INHALE 2 PUFF DIRECTED EVERY FOUR HOURS NEEDED 6 02/16/2018 Active azithromycin (ZITHROMAX) 250 MG tablet 0 04/04/2018 Active hydrocortisone (WESTCORT) 0.2 % cream APPLY TO AFFECTED AREA NEEDED 1 01/04/2018 Active predniSONE (DELTASONE) tablet 10 mg 0 04/04/2018 Active triamcinolone (KENALOG) 0.1 % ointment APPLY A THIN LAYER TO THE AFFECTED AREAS BY TOPICAL ROUTE 2 TIMES A DAY 2 01/12/2018 Active cyclobenzaprine (FLEXERIL) 10 MG tablet Take 1 tablet (10 mg total) by mouth daily. 30 tablet 0 05/24/2018 Active meloxicam (MOBIC) 15 MG tablet Take 1 tablet (15 mg total) by mouth daily. 30 tablet 0 05/24/2018 Active Active Problems Problem Noted Date Diagnosed Date Adhesive capsulitis of right shoulder 10/27/2018 Impingement syndrome of right shoulder 9 Biceps tendinitis, right 04/28/2018 Patellofemoral pain syndrome of both knees 04/05 Complete tear of right rotator cuff 04/05/2018 Primary localized osteoarthrosis of right lower leg 04/05/2018 Right shoulder pain 04/05/2018 Pain in both knees 04/05/2018 Social History Tobacco Use Types Packs/Day Years Used Date Smoking Tobacco: Never Smokeless Tobacco: Never Sex and Gender Information Value Date Recorded Sex Assigned at Not on file Gender Identity Not on file Sexual Orientation Not on file Plan of Treatment Health Maintenance Due Date Last Done Comments Hepatitis C Screening 1955 COVID-19 Vaccine (#1) 1956 Depression Screening 1968 Preventative Health Evaluation 1974 DTap / Tdap / Td (1 - Tdap) 1975 Colon Cancer Screening (Colonoscopy) 2001 Breast Cancer Screening (Mammogram) 2006 Shingrix-Zoster Vaccine (1 of 2) 2006 Fall Risk Assessment 2021 Osteoporosis Screening (DEXA Scan) 2021 Pneumococcal Vaccine (1 of 1 - PCV) 2021 Influenza Vaccine (#1) 2024 RSV Adult > 60+ Yrs or Pregn ant (1 - 1-dose 75+ series) 2031 Hepatitis B Vaccines Aged Out No long er eligible based on patient's age to complete this topic RSV Ped < 20 months Aged Out No longe r eligible based on patient's age to complete this topic Care Teams Anesthesiology Technologist Relationship Specialty Start Date End Date Latasha Myers MD [address] [place] [id number] PCP - General Internal Medicine 04/07/18
== END 2024-12-04 13:48 | disposition home or self-care (01) ==
LOC: HO.BBR 13:47
PROVIDERS: PCP Internal Medicine; Visit Provider Family Medicine
DX: Z13.89 Encounter for screening for other disorder (principal)

== ENCOUNTER 2025-04-17 13:17 | Outpatient (REF) | payer MEDICARE, SELFPAY ==
--- OUTSIDE RECORDS SUMMARY | 2025-04-17 15:14 | XMS_ITS | Data Portability ---
Author Organization [place] [facility], Allergy Address [address] [address] Care Team Providers Care News Reel Cameraman Name Role Phone LEONIDAS YULIA Primary Care Provider Assessment No assessment recorded. [...] ole-betam ethasone 1 %-0.05 % topical cream 2024 025 [facility] #[id number], [address], [place], [address], 04/06/2025 12:56:36 EpiPen 2-Que 0.3 mg/0.3 mL injection , auto-inje ctor 2024 025 [facility] #[id number], [address], [place], [address], 11/10/2024 11:24:29 clotrimaz ole-betam ethasone 1 %-0.05 % topical cream 2023 025 [facility] #[id number], [address], [place], [address], 04/06/2025 10:27:10 clotrimaz ole 1 % topical solution 2023 025 [facility] #[id number], [address], [place], [address], 11/10/2024 11:06:03 Patient TargetsNo targets recorded. Patient InstructionsNo instructions [...] Details Recorded Time Gastroeso phageal reflux disease 145860725 Active 2014 GERD; Note: Date Diagnosed : 10/31/2014 10:39 AM (530.81) Not Available [facility] 4 02:56:52 Acute pharyngit is 473320806 Active 2015 Acute pharyngit is, unspecifi ed; Note: Date Diagnosed : 03/05/2016 5:04 PM (J02.9) Not Available [facility] 4 02:56:52 Allergic rhinitis 36678597 Active 2014 Allergic Rhinitis; Note: Date Diagnosed [...] : 5 4:35 PM (J30.89) Not Available [facility] 4 02:56:53 Impacted cerumen in right ear 82339236339 59587 Active 2018 Impacted cerumen, right ear; Note: Date Diagnosed : 03/07/2019 10:37 AM (H61.21) Not Available [facility] 4 02:56:53 Dysphonia 26941933 Active 2016 Hoarsenes s; Note: Date Diagnosed : 7 4:03 PM (R49.0) Not Available [facility] 4 02:56:52 Asthma 680768720 Active 2016 Other asthma; Note: Date Diagnosed : 04/22/2017 10:57 AM (J45.998) Not Available [facility] 4 02:56:51 Impacted cerumen in left ear 60712974564 95105 Active 2015 Impacted cerumen, left ear; Note: Date Diagnosed : 6 2:06 PM (H61.22) Not Available [facility] 4 02:56:54 Acute upper respirato ry infection 95281944 Active 2014 Upper Respirato ry Infection ; Note: Date Diagnosed : 10/31/2014 10:39 AM (465.9) Not Available [facility] 4 02:56:50 Abnormal auditory perceptio n 06909308 Active 2018 Other abnormal auditory perceptio ns, unspecifi ed ear; Note: Date Diagnosed : 03/07/2019 10:28 AM (H93.299) Not Available [facility] 4 02:56:52 Psoriasis 2767386 Active 2022 Psoriasis and similar disorders : Other psoriasis ; Location: bilateral CMS Treatment : new problem (to examiner) : no additiona l workup planned N ote: Date Diagnosed : 4 3:44 PM (696.1) ; Start Date : 4 Psorias is, unspecifi ed; Note: Date Diagnosed : 07/27/2023 1:59 PM (L40.9) Not Available [facility] 4 02:56:53 Cough 14615378 Active 2022 Cough; Note: Date Diagnosed : 02/16/2023 3:31 PM (R05) Not Available [facility] 4 02:56:51 Infective otitis externa 08868978 Active 2013 Otitis externa; infective ; Location: left CMS Treatment : new problem (to examiner) : no additiona l workup planned N ote: Date Diagnosed : 4 3:44 PM (380.10) Not Available [facility] 4 02:56:52 Impacted cerumen of bilateral ears 54099519555 69167 Active 2022 Impacted cerumen, bilateral ; Note: Date Diagnosed : 02/16/2023 3:31 PM (H61.23) Not Available [facility] 4 02:56:54 Recurrent acute sinusitis 178239182 Active 2015 Other acute recurrent sinusitis ; Note: Date Diagnosed : 03/05/2016 5:00 PM (J01.81) Not Available [facility] 4 02:56:53 Bilateral tinnitus 26851668915 02 Active 2019 Tinnitus, bilateral ; Note: Date Diagnosed : 11/29/2019 3:06 PM (H93.13) Not Available [facility] 4 02:56:51 Candidal otitis externa 94294945 Active 2023 SEVERO AVILA MD [address] [place] [address], [place], [address] , [facility] 4 14:20:35 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 Medical Equipment None Reported. Allergies Allergen ID Allergen Name Allergen Category Reaction Reaction Severity Criticality Documentation Date Start Date Code Code System Note Provider Name and Address Organization Details Recorded Time 241649 Substance with sulfonami de structure and antibacte rial mechanism of action (substanc e) medicatio n other Not available Not available 03/07/2024 30969 8003 SNOMED React ion: unkno wn, unspe cifie d;; Not Available [facility] 4 00:37:31 Medications Name Sig Start Date Stop Date Status Note LastModified by Organization Details LastModified Time Prescript ion - Prior Authoriza tion Request active Script Copy/Erin or Auth^Scr ipt Copy/Erin or Auth_ [id number] Not Available Not Available Not Available [place] Thyroid 60 mg tablet TAKE 1 TABLET BY MOUTH EVERY DAY active Not Available Not Available No t Available Augmentin 875 mg-125 mg tablet 07/13 completed Medicati on ID: [id number] D uration Value: 10 Brand Name: Augmenti n Send Method: E-Prescr ibed Sub s Allowed: subs OK Speci al Instruct ion: 1 PO BID for 10 days Med icationG enericNa me: Augmenti n Not Available Not Available Not Available nystatin 100,000 unit/mL oral suspensio n TAKE 5 ML BY MOUTH 4 TIMES A DAY,FOR 7 DAYS,INS TR:SWISH AND SWALLOW active Not Available Not Available No t Available prednison e 10 mg tablet TAKE 4 TABS DAILY X 3 DAYS, 3 TABS DAILY X 3 DAYS, 2 TABS DAILY X 3 DAYS, 1 TAB DAILY X 3 DAYS 04/06 completed Not Available Not Available Not Available azithromy aaliyah 250 mg tablet TAKE 2 TABLETS BY MOUTH TODAY, THEN TAKE 1 TABLET DAILY FOR 4 DAYS DIRECTED 04/06 completed Not Available Not Available Not Available Medrol (Que) 4 mg tablets in a dose pack 07/13 completed Medicati on ID: [id number] P rescribe d By Name: Sarthak Mercado MD Brand Name: Medrol (Que) Se nd Method: E-Prescr ibed Sub s Allowed: subs OK Speci al Instruct ion: take as instruct ed Medic ationGen ericName : Medrol (Que) Not Available Not Available Not Available prednison e 20 mg tablet PLEASE SEE ATTACHED FOR DETAILED DIRECTIO NS active Not Available Not Available No t Available triamcino lone acetonide 0.1 % topical cream APPLY TWICE A DAY TO ACTIVE PSORIASI S FOR UP TO TWO WEEKS AT A TIME 04/06 completed Not Available Not Available Not Available amoxicill in 500 mg tablet TAKE 2 TABLET BY MOUTH DAILY,X1 0 DAYS 04/06 completed Not Available Not Available Not Available nystatin- triamcino lone 100,000 unit/gram -0.1 % topical ointment 03/07 completed Medicati on ID: [id number] D uration Value: 7 Reason: () Brand [...] topical ointment 02/16 completed Medicati on ID: [id number] D uration Value: 14 Brand Name: triamcin olone acetonid e Send Method: E-Prescr ibed Sub s Allowed: subs OK Speci al Instruct ion: APPLY TOPICALL Y TO THE AFFECTED AREA 2 TIMES A DAY FOR 14 DAYS [facility] me: triamcin olone acetonid e Not Available Not Available Not Available clotrimaz ole-betam ethasone 1 %-0.05 % topical cream Apply 1 a small amount to affected area once a week 2024 active Not Available Not Available Not Avai lable Advair Diskus 250 mcg-50 mcg/dose powder for inhalatio n Inhale 1 puff twice a day 07/13 completed Medicati on ID: [id number] D uration Value: 90 Prescri bed By [...] before meals 07/13 completed Medicati on ID: [id number] D uration Value: 30 Prescri bed By [...] ast Not Available Not Available Not Available [place] Thyroid 30 mg tablet 06/07 completed Medicati on ID: [id number] D uration Value: 90 Reason: () Brand Name: [place] Thyroid Send Method: E-Prescr ibed Sub s Allowed: subs OK Speci al Instruct ion: TAKE 1 TABLET BY MOUTH ONCE DAILY Me dication GenericN cathy: [place] Thyroid Not Available Not Available Not Available clobetaso l 0.05 % topical ointment APPLY A THIN FILM TOPICALL Y 2 TIMES A WEEK active Not Available Not Available No t Available epinephri ne 0.3 mg/0.3 mL injection [...] Available TobraDex 0.3 %-0.1 % eye drops,perez oliva 10/12 completed Medicati on ID: [id number] Pre [...] 2 puff 02/16 completed Medicati on ID: [id number] P rescribe d By Name: Sarthak Mercado MD Brand Name: Flovent HFA Send Method: E-Prescr ibed Sub s Allowed: No subs Med icationG enericNa me: Flovent HFA Not Available Not Available Not Available Cortispor in 10/13 completed Medicati on ID: [id number] R radha: () Brand Name: cortispo rin Send Method: E-Prescr ibed Sub s Allowed: subs OK Medic ationGen ericName : cortispo rin Not Available Not Available Not Available Symbicort 160 mcg-4.5 mcg/actua tion HFA aerosol inhaler INHALE 2 PUFFS EVERY MORNING & EVERY EVENING. RINSE MOUTH WITH WATER AFTER USE active Not Available Not Available No t Available omeprazol e 20 mg tablet,de layed release 02/16 completed Medicati on ID: [id number] Pr escribed By Name: Sarthak Mercado MD Brand Name: omeprazo le Send Method: E-Prescr ibed Sub s Allowed: subs OK Speci al Instruct ion: Take 1 tablet by mouth twice day before a meal Med icationG enericNa me: omeprazo le Not Available Not Available Not Available OptiChamb er [facility] spacer USE WITH INHALERS active Not Available Not Available No t Available Taclonex 0.005 %-0.064 % topical suspensio n 02/16 completed Medicati on ID: [id number] D uration Value: 30 Brand Name: Taclonex [...] Updated DateTime 11/10/2024 157.48 cm 31.6 kg/m2 39568.48 g Fabiola Lam [facility] 11/10/2024 11:05:42 Date Recorded Body height Body mass index (BMI) Body weight Provider Name and Address Organization Details Last Updated DateTime 04/06/2025 157.48 cm 31.6 kg/m2 61005.04 g Fabiola Lam [facility] 04/06/2025 10:26:42 Date Recorded Body height Body mass index (BMI) Body weight Provider Name and Address Organization Details Last Updated DateTime 07/13/2024 157.48 cm 31.6 kg/m2 55145.48 g Fabiola Lam [facility] 07/13/2024 13:55:50 Social History None recorded. Functional Status None recorded. Mental Status None recorded. Family History Nothing Reported. Medical History No medical history recorded. Gynecological HistoryNo gynecological history recorded. Obstetrics History GPAL:G 0 P 0 0 0 0 Past Encounters Encounter ID Performer Location Encounter Start Date Encounter Closed Date Diagnosis/Indication Diagnosis SNOMED-CT Code Diagnosis ICD10 Code Diagnosis Note [id number] SEVERO AVILA MD [facility] [address] [address] 07/13/2024 13:46:12 07/17/2024 12:11:39 Candidal otitis externa 94093771 B37.84 69 yo F here for ear [...] or no improvemen t after couple weeks [id number] SEVERO AVILA MD [facility] [address] [address] 11/10/2024 10:51:49 11/10/2024 11:28:45 Allergic rhinitis 33161359 J30.89 Impacted c erumen of bilateral ears 2105790511 785861 H61.23 Completely squamous debris removed on the right, partially impacted cerumen removed on the left. I did recommend using the clotrimazo le prescribed at her last visit. I counseled her on dosing. She should continue to use the Lotrisone cream as needed for both EAC meatuses.F ollow-up 3 months. [id number] SEVERO AVILA MD [facility] [address] [address] 04/06/2025 10:06:14 04/06/2025 10:41:44 Impacted cerumen of bilateral ears 4621992245 419824 H61.23 Completely squamous debris removed on the right, partially impacted cerumen removed on the left. I have recommende d she use the Lotrisone cream once a week. Follow-up 3 months. Health Concerns Section Related Observation LastModified by Organization Detai ls LastModified Time None Recorded Concern Status LastModified by Organization Details LastModified Time None Recorded Advance Directives Directive None Recorded Payers Insurance Date Sequence Insurance Name Policy Number Policy Renae Covered Member ID Renae Member ID Guarantor Name 04/06/2025 1 [place] [employer] Sapna S Polep [id number] Sapna Polep 11/09/2024 2 A[employer] (MEDICARE SUPPLEMENT) Sapna Polep [id number] Sapna Polep 04/06/2025 2 [employer] (MEDICARE SUPPLEMENT) Sapna S Polep [id number] Sapna Polep Notes Date Note Type Note Provider Name and Address Organization Details Recorded Time 07/13/2024 text/html Here for cerumen removal. Sinus pressure for a couple days, took sudafed for a couple days. taking alavert. No nasal steroids. SEVERO AVILA MD [address] [facility],[address], [address], [place] - [facility] 07/17/2024 10:12:50 11/10/2024 text/html Previous audiogr am in 2019 excellent. Some blockage on the right. Did not use clotrimazole drops after her last visit. Does have some allergies with epipen. SEVERO AVILA MD [address] [facility],[address], [address], [facility] 11/10/2024 12:24:25 04/06/2025 text/html Strep in January amoxicillin and then prednisone then bronchitis has been on prednisone. Allergies are bothersome. Ears have been plugged. PV: Previous audiogram in 2019 excellent. Some blockage on the right. Did not use clotrimazole drops after her last visit. Does have some allergies with epipen. SEVERO AVILA MD [address] [facility],[address], [address], [facility] - [facility] 04/06/2025 12:57:10 OBGyn Episode No OBEpisode recorded.
== END 2025-04-17 13:18 | disposition home or self-care (01) ==
LOC: HO.BBR 13:17
PROVIDERS: PCP Internal Medicine; Visit Provider Family Medicine
DX: Z13.89 Encounter for screening for other disorder (principal)

== ENCOUNTER 2025-08-22 13:49 | Outpatient (REF) | payer MEDICARE, SELFPAY ==
--- OUTSIDE RECORDS SUMMARY | 2025-08-22 17:49 | XMS_ITS | Encounter Summary ---
Author Organization [facility] Address [address] [place] [address] Phone Care Team Providers Care Telephone Answering Service Operator Name Role Phone Latasha Myers MD Primary Care Provider [phone] Self-Referred, Patient Unavailable Unavailab le Encounter Details Date Type Department Care Team (Late st Contact Info) Description 12/10/[address] [facility] Periop [address] [place] [address] Social History Tobacco Use Types Packs/Day Years Used Date Smoking Tobacco: Never Alcohol Use Standard Drinks/Week Comments Yes 0 (1 standard drink = 0.6 oz pure alcohol) one glass of wine at night w/ dinner Comments No Sex and Gender Information Value Date Recorded Sex Assigned at Female 06/26/2021 10:26 AM EDT Legal Sex Female 3:25 PM EST Gender Identity Female 06/26/2021 10:26 AM EDT Sexual Orientation Not on file documented as of this encounter Plan of Treatment Not on file documented as of this encounter Visit Diagnoses Not on filedocumented in this encounter Care Teams Telephone Answering Service Operator Relationship Specialty Start Date End Date Latasha Myers MD [address] [address] PCP - General Internal Medicine 11/20/16 Self-Referred, Patient Referring Physician 11/20/16 documented as of this encounter Additional Source Comments The information contained in this document represents components of the legal health record. It is not the complete legal health record.[facility]
--- OUTSIDE RECORDS SUMMARY | 2025-08-22 17:49 | XMS_ITS | Data Portability ---
Author Organization [place] - [facility], Allergy Address [address] [address] Care Team Providers Care Digital Retoucher Name Role Phone LEONIDAS YULIA Primary Care Provider [phone] Assessment No assessment recorded. Plan of Treatment Reminders Order Date Submit Date Provider Last Modified By Organization Details Last Modified Time Details Appointments Establish ed 15 2025 02:15P M SEVERO AVILA MD Not available Not available Not available Hearing Test After 2025 03:00P M Hearing Test Not available Not available Not available Lab None recorded. Referral None recorded. Procedures None recorded. Surgeries None recorded. Imaging None recorded. Medication Orders clotrimaz ole-betam ethasone 1 %-0.05 % topical cream 2024 025 [facility]acy #[id number], [address] [place], [address], 04/06/2025 12:56:36 EpiPen 2-Que 0.3 mg/0.3 mL injection , auto-inje ctor 2024 025 [facility] #[id number], [address], [place], [address], 11/10/2024 11:24:29 clotrimaz ole-betam ethasone 1 %-0.05 % topical cream 2023 025 [facility] #0517, [address] [place], [address], 04/06/2025 10:27:10 clotrimaz ole 1 % topical solution 2023 025 [facility]acy #[id number], [address], [place], [address], 11/10/2024 11:06:03 Patient TargetsNo targets recorded. Patient Instructions Encounter Date Encounter Id Patient Instructions Last Modified By Organization Details Last Modified Time 08/17/2025 [id number] Take Flonase starting 2 weeks before the flight and continue through the trip Take pseudoephedrine half an hour before takeoff Take oxymetazoline and half an hour before descent Consider [employer] [email or web address] Not available 08/17/2025 10:38:10 Reason for Referral None Reported. Results Created Date Observation Date Name Description Value Unit Range Abnormal Flag Note LastModifiedBy Organization Detail LastModifiedTime 06/14/2011/29/2019 imagi ng/di agnos tic resul t No observ ation record ed. [email or web address] Not Available 05:33:21 06/14/2003/07/2019 audio gram No observ ation record ed. [email or web address] Not Available 05:33:35 Result Notes None recorded. Problems Name Problem SNOMED Code Status Onset Date Resolution Date Notes Provider Name and Address Organization Details Recorded Time Infective otitis externa 13485355 Active 2013 Otitis externa; infective ; Location: left [facility] Treatment : new problem (to examiner) : no additiona l workup planned N ote: Date Diagnosed : 4 3:44 PM (380.10) Not Available [facility] 4 02:56:52 Gastroeso phageal reflux disease 099801325 Active 2014 GERD; Note: Date Diagnosed : 10/31/2014 10:39 AM (530.81) Not Available [facility] 4 02:56:52 Acute upper respirato ry infection 64332843 Active 2014 Upper Respirato ry Infection ; Note: Date Diagnosed : 10/31/2014 10:39 AM (465.9) Not Available [facility] 4 02:56:50 Allergic rhinitis 40087337 Active 2014 Allergic Rhinitis; Note: Date Diagnosed [...] : 5 4:35 PM (J30.89) Not Available [facility] 4 02:56:53 Acute pharyngit is 757288691 Active 2015 Acute pharyngit is, unspecifi ed; Note: Date Diagnosed : 03/05/2016 5:04 PM (J02.9) Not Available [facility] 4 02:56:52 Recurrent acute sinusitis 433257099 Active 2015 Other acute recurrent sinusitis ; Note: Date Diagnosed : 03/05/2016 5:00 PM (J01.81) Not Available [facility] 4 02:56:53 Impacted cerumen in left ear 53655006296 22887 Active 2015 Impacted cerumen, left ear; Note: Date Diagnosed : 6 2:06 PM (H61.22) Not Available [facility] 4 02:56:54 Asthma 271119689 Active 2016 Other asthma; Note: Date Diagnosed : 04/22/2017 10:57 AM (J45.998) Not Available [facility] 4 02:56:51 Dysphonia 23635273 Active 2016 Hoarsenes s; Note: Date Diagnosed : 7 4:03 PM (R49.0) Not Available [facility] 4 02:56:52 Impacted cerumen in right ear 38526868514 96162 Active 2018 Impacted cerumen, right ear; Note: Date Diagnosed : 03/07/2019 10:37 AM (H61.21) Not Available [facility] 4 02:56:53 Abnormal auditory perceptio n 66321191 Active 2018 Other abnormal auditory perceptio ns, unspecifi ed ear; Note: Date Diagnosed : 03/07/2019 10:28 AM (H93.299) Not Available [facility] 4 02:56:52 Bilateral tinnitus 99244694207 02 Active 2019 Tinnitus, bilateral ; Note: Date Diagnosed : 11/29/2019 3:06 PM (H93.13) Not Available [facility] 4 02:56:51 Cough 50549968 Active 2022 Cough; Note: Date Diagnosed : 02/16/2023 3:31 PM (R05) Not Available [facility] 4 02:56:51 Impacted cerumen of bilateral ears 00868939201 20919 Active 2022 Impacted cerumen, bilateral ; Note: Date Diagnosed : 02/16/2023 3:31 PM (H61.23) Not Available [facility] 4 02:56:54 Psoriasis 2298277 Active 2022 Psoriasis and similar disorders : Other psoriasis ; Location: bilateral [facility] Treatment : new problem (to examiner) : no additiona l workup planned N ote: Date Diagnosed : 4 3:44 PM (696.1) ; Start Date : 4 Psorias is, unspecifi ed; Note: Date Diagnosed : 07/27/2023 1:59 PM (L40.9) Not Available [facility] 4 02:56:53 Candidal otitis externa 17170359 Active 2023 SEVERO AVILA MD [address] [place] [address],[place] [address], [place], [address] , [place] - [facility] 4 14:20:35 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 SEVERO AVILA MD [address] [place] [address],[place] [address], [place], [address] , [place] - [facility] 4 14:20:35 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 Medical Equipment None Reported. Allergies Allergen ID Allergen Name Allergen Category Reaction Reaction Severity Criticality Documentation Date Start Date Code Code System Note Provider Name and Address Organization Details Recorded Time 559644 Substance with sulfonami de structure and antibacte rial mechanism of action (substanc e) medicatio n other Not available Not available 03/07/2024 14190 8003 SNOMED React ion: unkno wn, unspe cifie d;; Not Available [facility] 4 00:37:31 Medications Name Sig Start Date Stop Date Status Note LastModified by Organization Details LastModified Time Prescript ion - Prior Authoriza tion Request active Script Copy/Erin or Auth^Scr ipt Copy/Erin or Auth_ 27519 Not Available Not Available Not Available Calliham Thyroid 60 mg tablet TAKE 1 TABLET BY MOUTH EVERY DAY active Not Available Not Available No t Available Augmentin 875 mg-125 mg tablet 07/13 completed Medicati on ID: [id number] D uration Value: 10 Brand Name: Augmenti n Send Method: E-Prescr ibed Sub s Allowed: subs OK Speci al Instruct ion: 1 PO BID for 10 days Med icationG enericNa me: Augmenti n Not Available Not Available Not Available nystatin 100,000 unit/mL oral suspensio n TAKE 5ML BY MOUTH 3 TIMES DAILY active Not Available Not Available No t Available prednison e 10 mg tablet PLEASE SEE ATTACHED FOR DETAILED DIRECTIO NS active Not Available Not Available No t Available azithromy aaliyah 250 mg tablet TAKE 2 TABLETS BY MOUTH TODAY, THEN TAKE 1 TABLET DAILY FOR 4 DAYS DIRECTED 04/06 completed Not Available Not Available Not Available Medrol (Que) 4 mg tablets in a dose pack 07/13 completed Medicati on ID: [id number] P rescribe d By Name: Sarthak Mercado [...] topical ointment 03/07 completed Medicati on ID: [id number] D uration Value: 7 Reason: () Bran d Name: nystatin -triamci nolone S end Method: [...] topical ointment 02/16 completed Medicati on ID: [id number] D uration Value: 14 Brand Name: triamcin olone acetonid e Send Method: E-Prescr ibed Sub s Allowed: subs OK Speci al Instruct ion: APPLY TOPICALL Y TO THE AFFECTED AREA 2 TIMES A DAY FOR 14 DAYS Med icationG enericNa me: triamcin olone acetonid e Not Available Not Available Not Available clotrimaz ole-betam ethasone 1 %-0.05 % topical cream APPLY A SMALL AMOUNT TO AFFECTED AREA ONCE A WEEK active Not Available Not Available No t Available Advair Diskus 250 mcg-50 mcg/dose powder for inhalatio n Inhale 1 puff twice a day 07/13 completed Medicati on ID: [id number] D uration Value: 90 Prescri bed By [...] before meals 07/13 completed Medicati on ID: [id number] D uration Value: 30 Prescri bed By [...] ast Not Available Not Available Not Available Calliham Thyroid 30 mg tablet 06/07 completed Medicati on ID: [id number] D uration Value: 90 Reason: () Brand Name: Calliham Thyroid Send Method: E-Prescr ibed Sub s Allowed: subs OK Speci al Instruct ion: TAKE 1 TABLET BY MOUTH ONCE DAILY Me dication GenericN cathy: Calliham Thyroid Not Available Not Available Not Available [...] 2 puff 02/16 completed Medicati on ID: [id number] P rescribe d By Name: Sarthak Mercado MD Brand Name: Flovent HFA Send Method: E-Prescr ibed Sub s Allowed: No subs Med icationG enericNa me: Flovent HFA Not Available Not Available Not Available Cortispor in 10/13 completed Medicati on ID: [id number] R radha: () Brand Name: cortispo rin [...] layed release 02/16 completed Medicati on ID: [id number] Pr escribed By Name: Sarthak Mercado MD Brand Name: omeprazo le Send Method: E-Prescr ibed Sub s Allowed: subs OK Speci al Instruct ion: Take 1 tablet by mouth twice day before a meal Med icationG enericNa me: omeprazo le Not Available Not Available Not Available OptiChamb er [facility] spacer USE WITH INHALERS active Not Available Not Available No t Available Taclonex 0.005 %-0.064 % topical suspensio n 02/16 completed Medicati on ID: [id number] D uration Value: 30 Brand Name: Taclonex [...] Updated DateTime 11/10/2024 157.48 cm 31.6 kg/m2 71995.48 g Fabiola Lam [place] - [facility] 11/10/2024 11:05:42 Date Recorded Body height Body mass index (BMI) Body weight Provider Name and Address Organization Details Last Updated DateTime 04/06/2025 157.48 cm 31.6 kg/m2 81551.04 g Fabiola Lam [place] [facility] 04/06/2025 10:26:42 Date Recorded Body height Body mass index (BMI) Body weight Provider Name and Address Organization Details Last Updated DateTime 07/13/2024 157.48 cm 31.6 kg/m2 09171.48 g Fabiola Lam [facility] 07/13/2024 13:55:50 Date Recorded Body height Body mass index (BMI) Body weight Provider Name and Address Organization Details Last Updated DateTime 08/17/2025 157.48 cm 31.5 kg/m2 01508.89 g LEE SABNIE, [facility] [address], [address], [place] - [facility] 08/17/2025 10:27:14 Social History Question Answer Notes LastModified by Organizat ion Details LastModified Time Tobacco Smoking Status Never Smoker SEVERO AVILA MD [address] [place] [address], [address], [facility] 07/13/2024 14:16:29 How Many Years Have You Consumed Alcohol? 52 Information not available 08/17/2025 What Type Of Onshore Diver Do You Use? None Information not available 08/17/2025 How Many Alcoholic Drinks Do You Consume Per Day On Average? 1 Information not available 08/17/2025 Do You Have Any Pets? No Information not available 08/17/2025 Are You Passively Exposed To Smoke? No Information not available 08/17/2025 Are There Any Smokers In Your House? No Information not available 08/17/2025 Sex: Unknown Functional Status Question Answer Note LastModified by Organization Details LastModified Time How many times per week do you consume alcohol? 3-4 times per week Information not available 08/17/2025 Do you use any illicit or recreational drugs? No Information not available 08/17/2025 Do you or have you ever used any other forms of tobacco or nicotine? No Information not available 08/17/2025 What is your level of alcohol consumption? Occasional Information not available 08/17/2025 What type of noise exposure are you exposed to? noExposureToExcessiveNoise Infor mation not available 08/17/2025 Mental Status None recorded. Family History Relationship Description Onset Age of this Age Resolved Age Notes LastModified by Organization Details LastModified Time Mother Allergy [email or web address] Not available 1 10:27:19 Mother Asthma [email or web address] Not available 10:27:19 Mother Diabetes mellitus 58 [email or web address] Not available 2024 10:27:19 Son Diabetes mellitus 37 [email or web address] Not available 2024 10:27:19 Brother Diabetes mellitus 58 [email or web address] Not available 2024 10:27:19 Father Diabetes mellitus 57 skorzec Not available 2024 10:27:19 Medical History Condition Response Allergies/Hayfever Y Heart Problems N Anxiety N Tonsil Infections N Emphysema N Migraines N Thyroid Problems Y Glaucoma N Depression N COPD N Developmental Delay N Nasal or Sinus Problems Y Anemia N Immune System Disorder N Anesthesia Complications N Heart Attack ([place]) N Other Skin Condition Y Diabetes N Rhinitis Y Bleeding Disorder N Food Allergy Y Arthritis Y Hearing Loss N Hyperlipidemia N Cancer N Stroke N Dementia N Nasal polyps Y Asthma Y High Cholesterol Y Sleep Disorder N GERD/Reflux Y Liver Disease N Headaches Y Fibromyalgia N Hypertension N Speech Delay N Kidney Disease N Gynecological HistoryNo gynecological history recorded. Obstetrics History GPAL:G 0 P 0 0 0 0 Past Encounters Encounter ID Performer Location Encounter Start Date Encounter Closed Date Diagnosis/Indication Diagnosis SNOMED-CT Code Diagnosis ICD10 Code Diagnosis IMO Codes Diagnosis Note [id number] SEVERO AVILA MD [facility] [address] [address] 07/13/2024 13:46:12 07/17/2024 12:11:39 Candidal otitis externa 86169669 B37.84 69 yo F here for ear cleaning which was tolerated well. There was some fungal debris on the right for which I recommende d a course of clotrimazo le drops. She can use the Lotrisone as needed for scaling or itching.Sh dori has had some sinus symptoms for a couple days. No mucus on exam I recommende d symptomati c treatment, including Afrin. Follow-up if worsening symptoms or no improvemen t after couple weeks [id number] SEVERO AVILA MD [facility] [address] [address] 11/10/2024 10:51:49 11/10/2024 11:28:45 Allergic rhinitis 70662410 J30.89 Impacted c erumen of bilateral ears 2767570572 907641 H61.23 Completely squamous debris removed on the right, partially impacted cerumen removed on the left. I did recommend using the clotrimazo le prescribed at her last visit. I counseled her on dosing. She should continue to use the Lotrisone cream as needed for both EAC meatuses.F ollow-up 3 months. [id number] SEVERO AVILA MD [facility] [address] [address] 04/06/2025 10:06:14 04/06/2025 10:41:44 Impacted cerumen of bilateral ears 9229584541 082727 H61.23 Completely squamous debris removed on the right, partially impacted cerumen removed on the left. I have recommende d she use the Lotrisone cream once a week. Follow-up 3 months. [id number] SEVERO AVILA MD [facility] [address] [place] [address] 08/17/2025 10:21:16 08/17/2025 10:53:45 Impacted cerumen of bilateral ears 9424952684 163302 H61.23 Squamous debris removed on the right, partially impacted cerumen removed on the left. I have recommende d she use the clotrimazo le drops another week on the right and continue to use the Lotrisone cream once a week. Follow-up 3 months. Abnormal a uditory perception 58315672 H93.291 [id number] Health Concerns Section Related Observation LastModified by Organization Detai ls LastModified Time None Recorded Concern Status LastModified by Organization Details LastModified Time None Recorded Advance Directives Directive None Recorded Payers Insurance Date Sequence Insurance Name Policy Number Policy Renae Covered Member ID Renae Member ID Guarantor Name 08/17/2025 1 [place] [employer] Sapna S Polep [id number] Sapna Polep 11/09/2024 2 AARP (MEDICARE SUPPLEMENT) Sapna Polep [id number] Sapna Polep 08/17/2025 2 [employer] (MEDICARE SUPPLEMENT) Sapna S Polep [id number] Sapna Polep Notes Date Note Type Note Provider Name and Address Organization Details Recorded Time 07/13/2024 text/html ROS as noted in the HPI Here for cerumen removal. Sinus pressure for a couple days, took sudafed for a couple days. taking alavert. No nasal steroids. SEVERO AVILA MD [address] [place] [address], [address], [facility] - [facility] 07/17/2024 10:12:50 11/10/2024 text/html ROS as noted in the HPI Previous audiogram in 2019 excellent. Some blockage on the right. Did not use clotrimazole drops after her last visit. Does have some allergies with epipen. SEVERO AVILA MD 100 [facility],[address], [address], [place] - [facility] 11/10/2024 12:24:25 04/06/2025 text/html ROS as noted in the HPI Strep in January amoxicillin and then prednisone then bronchitis has been on prednisone. Allergies are bothersome. Ears have been plugged. PV: Previous audiogram in 2019 excellent. Some blockage on the right. Did not use clotrimazole drops after her last visit. Does have some allergies with epipen. SEVERO AVILA MD 100 [facility],[address], [address], [place] - [facility] 04/06/2025 12:57:10 08/17/2025 text/html Frequent sinus infections. Trouble on flight from [facility]. Used clotrimazole the past week which has helped. SEVERO AVILA MD [address] [facility] [address], [place], [address], [facility] - [facility] 08/17/2025 10:40:23 OBGyn Episode No OBEpisode recorded.
--- OUTSIDE RECORDS SUMMARY | 2025-08-22 17:49 | XMS_ITS | Clinical Summary ---
Author Organization [facility] Address [address] [place] [address] Care Team Providers Care Certified Residential Medication Aide Name Role Phone Latasha Myers MD Primary Care Provider [phone] Allergies Active Allergy Reactions Criticality Noted Date [...] 1 - PCV) 2021 Influenza Vaccine (#1) 2025 RSV Adult > 60+ Yrs or Pregn ant (1 - 1-dose 75+ series) 2031 Hepatitis B Vaccines Aged Out No long er eligible based on patient's age to complete this topic RSV Ped < 20 months Aged Out No longe r eligible based on patient's age to complete this topic Care Teams Certified Residential Medication Aide Relationship Specialty Start Date End Date Latasha Myers MD [address] [place] [id number] PCP - General Internal Medicine 04/07/18
--- OUTSIDE RECORDS SUMMARY | 2025-08-22 17:49 | XMS_ITS | Continuity of Care Document ---
Author Organization [place] - [facility], [facility] Address [address] [place] [address] Care Team Providers Care Induction Heat Treater Name Role Phone YULIA LAUREN Primary Care Provider [phone] Assessment No assessment recorded. Plan of Treatment [...] None recorded. Imaging None recorded. Medication Orders None recorded. Patient TargetsNo targets recorded. Patient Instructions Encounter Date Encounter Id Patient Instructions Last Modified By Organization Details Last Modified Time 08/17/2025 [id number] Take Flonase starting 2 weeks before the flight and continue through the trip Take pseudoephedrine half an hour before takeoff Take oxymetazoline and half an hour before descent Consider [employer] [email or web address] Not available 08/17/2025 10:38:10 Reason for Referral None Reported. Problems Name Problem SNOMED Code Status Onset Date Resolution Date Notes Provider Name and Address Organization Details Recorded Time Infective otitis externa 51145437 Active 2013 Otitis externa; infective ; Location: left [facility] Treatment : new problem (to examiner) : no additiona l workup planned N ote: Date Diagnosed : 4 3:44 PM (380.10) Not Available [facility] 02:56:52 Gastroeso phageal reflux disease 356627339 Active 2014 GERD; Note: Date Diagnosed : 10/31/2014 10:39 AM (530.81) Not Available [facility] 4 02:56:52 Acute upper respirato ry infection 16978417 Active 2014 Upper Respirato ry Infection ; Note: Date Diagnosed : 10/31/2014 10:39 AM (465.9) Not Available [facility] 4 02:56:50 Allergic rhinitis 00868583 Active 2014 Allergic Rhinitis; Note: Date Diagnosed [...] [facility] 4 02:56:53 Acute pharyngit is 005971726 Active 2015 Acute pharyngit is, unspecifi ed; Note: Date Diagnosed : 03/05/2016 5:04 PM (J02.9) Not Available [facility] 4 02:56:52 Recurrent acute sinusitis 205875868 Active 2015 Other acute recurrent sinusitis ; Note: Date Diagnosed : 03/05/2016 5:00 PM (J01.81) Not Available [facility] 4 02:56:53 Impacted cerumen in left ear 89687725412 37028 Active 2015 Impacted cerumen, left ear; Note: Date Diagnosed : 6 2:06 PM (H61.22) Not Available [facility] 4 02:56:54 Asthma 642933400 Active 2016 Other asthma; Note: Date Diagnosed : 04/22/2017 10:57 AM (J45.998) Not Available [facility] 4 02:56:51 Dysphonia 59387000 Active 2016 Hoarsenes s; Note: Date Diagnosed : 7 4:03 PM (R49.0) Not Available [facility] 4 02:56:52 Impacted cerumen in right ear 36441903329 86723 Active 2018 Impacted cerumen, right ear; Note: Date Diagnosed : 03/07/2019 10:37 AM (H61.21) Not Available [facility] 4 02:56:53 Abnormal auditory perceptio n 27805442 Active 2018 Other abnormal auditory perceptio ns, unspecifi ed ear; Note: Date Diagnosed : 03/07/2019 10:28 AM (H93.299) Not Available [facility] 4 02:56:52 Bilateral tinnitus 83814209308 02 Active 2019 Tinnitus, bilateral ; Note: Date Diagnosed : 11/29/2019 3:06 PM (H93.13) Not Available [facility] 4 02:56:51 Cough 94746451 Active 2022 Cough; Note: Date Diagnosed : 02/16/2023 3:31 PM (R05) Not Available [facility] 4 02:56:51 Impacted cerumen of bilateral ears 48441280521 72493 Active 2022 Impacted cerumen, bilateral ; Note: Date Diagnosed : 02/16/2023 3:31 PM (H61.23) Not Available [facility] 4 02:56:54 Psoriasis 2820749 Active 2022 Psoriasis and similar disorders : Other psoriasis ; Location: bilateral [facility] Treatment : new problem (to examiner) : no additiona l workup planned N ote: Date Diagnosed : 4 3:44 PM (696.1) ; Start Date : 4 Psorias is, unspecifi ed; Note: Date Diagnosed : 07/27/2023 1:59 PM (L40.9) Not Available [facility] 4 02:56:53 Candidal otitis externa 40347817 Active 2023 SEVERO AVILA MD [address] [place] [address], [place], [address] , [facility] - [facility] 4 14:20:35 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 SEVERO AVILA MD [address] [facility],[place] [address], Grazyna bishop, [place], [address] , [facility] - [facility] 4 14:20:35 Chronic mycotic otitis externa 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 Medical Equipment None Reported. Allergies Allergen ID Allergen Name Allergen Category Reaction Reaction Severity Criticality Documentation Date Start Date Code Code System Note Provider Name and Address Organization Details Recorded Time 299180 Substance with sulfonami de structure and antibacte rial mechanism of action (substanc e) medicatio n other Not available Not available 03/07/2024 28995 8003 SNOMED React ion: unkno wn, unspe cifie d;; Not Available [facility] 4 00:37:31 Medications Name Sig Start Date Stop Date Status Note LastModified by Organization Details LastModified Time Prescript ion - Prior Authoriza tion Request active Script Copy/Erin or Auth^Scr ipt Copy/Erin or Auth_ 19501 Not Available Not Available Not Available [place] Thyroid 60 mg tablet TAKE 1 TABLET BY MOUTH EVERY DAY active Not Available Not Available No t Available Augmentin 875 mg-125 mg tablet 07/13 completed Medicati on ID: [id number] D uration Value: 10 Brand Name: Augmenti [...] dose pack 07/13 completed Medicati on ID: [id number] P saidarimercedes d By Name: Sarthak Mercado MD Brand Name: Medrol (Que) Se nd Method: E-Prescr ibed Sub s Allowed: subs OK Speci al Instruct ion: take [facility] ed [facility] : Medrol (Que) Not Available [...] topical ointment 03/07 completed Medicati on ID: [id number] D uration Value: 7 Reason: () Brand [...] topical ointment 02/16 completed Medicati on ID: [id number] D uration Value: 14 Brand Name: triamcin olone acetonid e Send Method: E-Prescr ibed Sub s Allowed: subs OK Speci al Instruct ion: APPLY TOPICALL Y TO THE AFFECTED AREA 2 TIMES A DAY FOR 14 DAYS Med [facility] enericNa me: triamcin olone acetonid e Not Available Not Available Not Available clotrimaz ole-betam ethasone 1 %-0.05 % topical cream APPLY A SMALL AMOUNT TO AFFECTED AREA ONCE A WEEK active Not Available Not Available No t Available Advair Diskus 250 mcg-50 mcg/dose powder for inhalatio n Inhale 1 puff twice a day 07/13 completed Medicati on ID: [id number] D uration Value: 90 Prescri bed By [...] before meals 07/13 completed Medicati on ID: [id number] D uration Value: 30 Prescri bed By [...] ast Not Available Not Available Not Available [place] Thyroid 30 mg tablet 06/07 completed Medicati on ID: [id number] D uration Value: 90 Reason: () Brand Name: Romie Thyroid Send Method: E-Prescr ibed Sub s Allowed: subs OK Speci al Instruct ion: TAKE 1 TABLET BY MOUTH ONCE DAILY Me dication GenericN cathy: [place] Thyroid Not Available Not Available Not Available [...] 2 puff 02/16 completed Medicati on ID: [id number] Ronda ponce d By Name: Sarthak Mercado MD Brand Name: Flovent HFA Send Method: E-Prescr ibed Sub s Allowed: No subs Med icationG enericNa me: Flovent HFA Not Available Not Available Not Available Cortispor in 10/13 completed Medicati on ID: [id number] R radha: () Brand Name: cortispo rin Send Method: E-Prescr ibed Sub s Allowed: subs OK Medic ationGen ericName : cortbrandonpo rin Not Available Not Available Not Available Symbicort 160 mcg-4.5 mcg/actua tion HFA aerosol inhaler INHALE 2 PUFFS EVERY MORNING & EVERY EVENING. RINSE MOUTH WITH WATER AFTER USE active Not Available Not Available No t Available omeprazol e 20 mg tablet,de layed release 02/16 completed Medicati on ID: [id number] Pr escribed By Name: Sarthak Mercado MD Brand Name: omeprazo le Send Method: E-Prescr ibed Sub s Allowed: subs OK Speci al Instruct ion: Take 1 tablet by mouth twice day before a meal Med icationG enericNa me: omeprazo le Not Available Not Available Not Available [facility] spacer USE WITH INHALERS active Not Available Not Available No t Available Taclonex 0.005 %-0.064 % topical suspensio n 02/16 completed Medicati on ID: [id number] D uration Value: 30 Brand Name: Taclonex [...] Updated DateTime 08/17/2025 157.48 cm 31.5 kg/m2 69038.89 g LEE JORGENSEN, [address], [address], [place] - [facility] 08/17/2025 10:27:14 Social History Question Answer Notes LastModified by Organizat ion Details LastModified Time Tobacco Smoking Status Never Smoker SEVERO AVILA MD [address] [place] [address],[address], [address], [facility] - [facility] 07/13/2024 14:16:29 How Many Years Have You Consumed Alcohol? 52 [email or web address] Information not available 08/17/2025 What Type Of Cnc Mill Programmer Do You Use? None Information not available [...] Emphysema N Migraines N Thyroid Problems Y Depression N COPD N Developmental Delay N Glaucoma N Nasal or Sinus Problems Y Anemia N Immune System Disorder N Anesthesia Complications N Heart Attack ([place]) N Other Skin Condition Y Diabetes N Rhinitis Y Bleeding Disorder N Food Allergy Y Hearing Loss N Arthritis Y Hyperlipidemia N Cancer N Stroke N Dementia N Nasal polyps Y Asthma Y Sleep Disorder N High Cholesterol Y GERD/Reflux Y Liver Disease N Headaches Y Fibromyalgia N Hypertension N Speech Delay N Kidney Disease N Gynecological HistoryNo gynecological history recorded. Obstetrics History GPAL:G 0 P 0 0 0 0 Past Encounters Encounter ID Performer Location Encounter Start Date Encounter Closed Date Diagnosis/Indication Diagnosis SNOMED-CT Code Diagnosis ICD10 Code Diagnosis IMO Codes Diagnosis Note [id number] SEVERO AVILA MD [facility] [address] [address] 08/17/2025 10:21:16 08/17/2025 10:53:45 Impacted cerumen of bilateral ears [id number] 496183 H61.23 Squamous debris removed on the right, partially impacted cerumen removed on the left. I have recommende d she use the clotrimazo le drops another week on the right and continue to use the Lotrisone cream once a week. Follow-up 3 months. Abnormal a uditory perception 43929657 H93.291 [id number] Health Concerns Section Related Observation LastModified by Organization Detai ls LastModified Time None Recorded Concern Status LastModified by Organization Details LastModified Time None Recorded Payers Encounter Date Sequence Insurance Name Policy Number Policy Renae Covered Member ID Renae Member ID Guarantor Name 08/17/2025 1 [place] [employer] Sapna S Polep [id number] Sapna Polep 08/17/2025 2 [employer] (MEDICARE SUPPLEMENT) Sapna S Polep [id number] Sapna Polep Notes Date Note Type Note Provider Name and Address Organization Details Recorded Time 08/17/2025 text/html Frequent sinus infections. Trouble on flight from [facility]. Used clotrimazole the past week which has helped. SEVERO AVILA MD [address] [place] [address], [address], [facility] - [facility] 08/17/2025 10:40:23 OBGyn Episode No OBEpisode recorded.
--- OUTSIDE RECORDS SUMMARY | 2025-08-22 17:49 | XMS_ITS | Patient Health Record ---
Author Organization [facility] Address [address] [facility] [address] [place] [address] Care Team Providers Care Deputy City Clerk Name Role Phone Louis Latasha Primary Care [...] 3 % 1 application Externally Twice a day; Duration: 30 day(s) 04/10/2021 Not-Taking Hydrocortisone 0.2% cream [...] 1 tablet Orally Once a day Active [place] Thyroid 60 MG 1 tablet on an empty stomach Orally Once a day Active Homocysteine Formula 2 cap daily Active Problems Problem Type SNOMED Code ICD Code Onset Dates Problem Status W/U Status Risk Notes Problem Acquired hammer toe of right foot (4062916039308 105) Hammer toe of right foot (M20.41) Active confirmed Problem Acquired hammer toe of left foot (8342721294080 103) Hammer toe of second toe of left [...] Date Medicare of [place] [address] [place] [address] [id number] Polep, Sapna Self - patient is the insured AARP Secondary to Medicare [address] [place] [address] [id number] Polep, Sapna Self - patient is the insured Medical (General) History Medical History History ICD Code asthma seasonal allergies gene positive hemachromatosis Surgical History Surgery Date(Month/Year) ovarian cyst removal ectopic 1980 1986 lipoma excision hysterectomy Hospitalization History Reason Date(Month/Year) observation for palpitations hysterectomy ectopic 1980 (boy) 1986 vaginal delivery (boy) 1982
--- OUTSIDE RECORDS SUMMARY | 2025-08-22 17:49 | XMS_ITS | Clinical Summary ---
Author Organization [facility] Address [address] [facility] [address] [place] [address] Phone Care Team Providers Care Health Commissioner Name Role Phone Latasha Myers MD Primary Care Provider [phone] Self-Referred, Patient Unavailable Unavailab le Allergies Active Allergy Reactions Criticality Noted Date Comments Egg Derived 12/03/2016 Iodinated Contrast Media Swelling 12/07/2016 Knee injected w/ a type of iodine dye and knee swelled (occured 35 years ago) Sulfa (Sulfonamide Antibiotics) 12/03/2016 Medications CALCIUM CARBONATE/VITAMI N D3 (CALCIUM 500 + D ORAL) Take by mouth. Active CHOLECALCIFEROL, VITAMIN D3, (VITAMIN D3 ORAL) Take by mouth. Active VITAMIN B COMPLEX (B COMPLEX ORAL) Take by mouth. Active ALBUTEROL INHL Inhale into the lungs 2 (two) times a day. Active MAGNESIUM ORAL Take by mouth. Reported on 12/07/2016 Active L-LYSINE ORAL Take by mouth. Reported on 12/07/2016 Active LACTOBACILLUS ACIDOPHILUS (PROBIOTIC ORAL) Take by mouth. Active melatonin 1 mg Tab Take 2 mg by mouth nightly. Active acetaminophen (TYLENOL) 325 mg tablet Take 2 tablets (650 mg total) by mouth every 4 (four) hours as needed for mild pain. 0 7 Active ibuprofen (ADVIL,MOTRIN) 200 MG tablet Take 2 tablets (400 mg total) by mouth every 6 (six) hours as needed for pain (specific location in comments). 7 Active Active Problems Problem Noted Date Diagnosed Date Polyp of corpus uteri 01/20/2017 Postmenopausal bleeding 12/02/2016 Social History Tobacco Use Types Packs/Day Years Used Date Smoking Tobacco: Never Alcohol Use Standard Drinks/Week Comments Yes 0 (1 standard drink = 0.6 oz pure alcohol) one glass of wine at night w/ dinner Education Answer Date Recorded Are you interested in more education? Not on rachid e 02/19/2023 Are you concerned about learning? Not on file 02/19/2023 No 02/19/2023 No 02/19/2023 Digital Access Answer Date Recorded No 03/17/2023 No 03/17/2023 No 03/17/2023 Reliable internet access at home? Not on file 03/17/2023 Device with a working camera? Not on file Comments No Sex and Gender Information Value Date Recorded Sex Assigned at Female 06/26/2021 10:26 AM EDT Legal Sex Female 3:25 PM EST Gender Identity Female 06/26/2021 10:26 AM EDT Sexual Orientation Not on file Last Filed Vital Signs Vital Sign Reading Time Taken Comments Blood Pressure 121/56 01/20/2017 11:35 AM EDT Pulse 69 01/20/2017 11:35 AM EDT Temperature 36.6 C (97.9 F) 01/20/2017 11:35 AM EDT Respiratory Rate 18 01/20/2017 11:35 AM EDT Oxygen Saturation 99% 01/20/2017 11:35 AM EDT Inhaled Oxygen Concentration - - Weight 80.1 kg (176 lb 8 oz) 01/20/2017 11:35 AM EDT Height 157.5 cm (5' 2.01 ) 12/02/2016 9:42 AM ES T dfci Body Mass Index 32.27 12/02/2016 9:42 AM EST Plan of Treatment Health Maintenance Due Date Last Done Comments Adult Td,Tdap Booster 1956 LIPID PANEL 1956 DEPRESSION SCREENING 1968 HEPATITIS C SCREENING 1974 MAMMOGRAM 1996 COLOGUARD 2001 COLONOSCOPY 2001 COLORECTAL CANCER SCREENING 2001 FIT TEST 2001 FOBT 2001 SIGMOIDOSCOPY 2001 VIRTUAL COLONOSCOPY 2001 PNEUMOCOCCAL VACCINES (50+ y ears) (1 of 1 - PCV) 2006 ZOSTER VACCINES (1 of 2) 2006 OSTEOPOROSIS SCREENING INITI AL (ONE-TIME) 2021 INFLUENZA VACCINE (#1) 2025 COVID-19 VACCINE (2 - 2024-2 6 season) 2025 12/20/2020 RSV VACCINE (1 - 1-dose 75+ series) 2031 SMOKING STATUS SCREENING (On ce After 26 Yrs) Completed 12/03/2016 HEPATITIS A VACCINES Aged Out No long er eligible based on patient's age to complete this topic HIB VACCINES Aged Out No longer eligi ble based on patient's age to complete this topic MENINGOCOCCAL VACCINES (ACWY) Aged Out No longer eligible based on patient's age to complete this topic MENINGOCOCCAL VACCINES (B) Aged Out N o longer eligible based on patient's age to complete this topic Medical Devices Implanted Type Area Senior Grants Officer Device Identifier Shelf Expiration Date Model / Serial / Lot Lower Right Tooth Implant [place] [address] [place] [address] PPO CIGNA PPO CIGNA PPO CIGNA PPO CIGNA PPO CIGNA PPO CIGNA PPO CIGNA PPO [id number] PPO [employer] Advance Directives For more information, please contact: [phone] (9AM - 5PM [facility], Wednesday-Wednesday) Documents on File Type Date Recorded Patient Senior Ecologist Hamilton jordan Living Will 12/12/2016 10:16 AM Healthcare Proxy 12/02/2016 9:27 AM Care Teams Health Commissioner Relationship Specialty Start Date End Date Latasha Myers MD [address] [address] PCP - General Internal Medicine 11/20/16 Self-Referred, Patient Referring Physician 11/20/16 Additional Source Comments The information contained in this document represents components of the legal health record. It is not the complete legal health record.[facility]
--- OUTSIDE RECORDS SUMMARY | 2025-08-22 17:49 | XMS_ITS ---
Author Name [facility] Organization Unknown Care Team Organization Name Specialty Phone Email Start Date End RUST 03/31/2023 03/31/2023
== END 2025-08-22 13:50 | disposition home or self-care (01) ==
LOC: HO.BBR 13:49
PROVIDERS: PCP Internal Medicine; Visit Provider Family Medicine
DX: Z13.89 Encounter for screening for other disorder (principal)